=== PATIENT | female | born 1960 | race Caucasian/White ===

== ENCOUNTER 2023-12-05 12:25 | Day surgery (SDC) | payer MEDICARE, SELFPAY ==
--- NOTE | 2023-12-05 | PATH_ITS ---
[facility] Accession Number: [id number] No. of containers..01 Tissue . 01 Material submitted: . body - BARRETTS . 01 Diagnosis: ESOPHAGUS, BIOPSY: Proximal gastric-type mucosa with mild chronic inflammation. Negative for specialized intestinal metaplasia on alcian blue stain. Negative for dysplasia or malignancy. MRV 12/12/2023 1630 Local . 01 Electronically signed: . Aston Sánchez MD, PhD, Pathologist NPI- [id number] . 01 Gross description: . NO SITE DESIGNATED /(BARRETTS X 2): Received in formalin are 2 fragment(s) of roberts, soft tissue measuring 0.2 x 0.2 x 0.2 cm to 0.5 x 0.5 x 0.2 cm submitted entirely in 1 cassette(s) /AD 12/07/2023 0049 Local . 01 Microscopic: . An AB/PAS stain is performed to evaluate for specialized intestinal metaplasia, and is negative for goblet cells. A control stain shows appropriate reactivity. . . 01 Pathologist provided ICD-10: K20.80 . 01 CPT . 726266, 534342 Specimen Comment: A courtesy copy of this report has been sent to [phone] Performed at: [address] [facility] [address], [place], [place] [id number] MD Jayce Molina MD Phone: [phone]
[2023-12-05 13:01] VITALS: BP 149/87; PULSE 97; RESP 18; TEMP 36.3; O2SAT 98
[2023-12-05] MEDS: LACTATED RINGERS 1,000 ML 42 ML IV (13:20)
--- NOTE | 2023-12-05 13:28 | PM.HP.1 ---
History of Present Illness History of Present Illness Date Patient Seen: 12/05/23 Chief complaint: EGD w/poss bx Narrative: EGD for history of Merida's esophagus at a 3 year interval [facility] Medical History Ankle pain (2014) Anxiety (2004) Chicken pox (~1963) Chickenpox Colon polyps (2018) DM type 2 (diabetes mellitus, type 2) Foot pain (2016) GERD (gastroesophageal reflux disease) (2013) History of nephrolithiasis Hypertension (~1997) Kidney stones (~1999) Lower urinary tract symptoms (LUTS) Nephrolithiasis Osteoarthritis (2014) Schatzki's ring (2013) Shingles Surgical History Anesthesia History of ankle surgery (05/2017) Hx of appendectomy (1978) Hx of breast biopsy (1994) Hx of endoscopy (10/2017) Hx of lithotripsy Family History Father Heart disease Hypertension Hyperlipidemia Mental health problem Stroke Mother Hypertension Hyperlipidemia Sister Mental health problem Social History marital status: number of children: 2 household members: spouse lives independently: Yes caregiver/support person: No housing: house Smoking Status: Former smoker Tobacco: How many years used: 10 second hand exposure: No alcohol intake: current substance use type: does not use Meds Home Medications and Allergies Home Medications Medication Instructions Recorded Confirmed Type atorvastatin 20 mg tablet 20 mg PO DAILY #90 tabs 03/19/18 12/05/23 Rx lisinopril 10 mg tablet 10 mg PO DAILY 03/19/18 12/05/23 History omeprazole 20 mg capsule,delayed 20 mg PO DAILY #90 caps 03/19/18 12/05/23 Rx release metformin 500 mg tablet 500 mg PO BID 10/02/18 12/05/23 History metoprolol tartrate 50 mg tablet 50 mg PO BID #180 tabs 02/11/19 12/05/23 Rx semaglutide 7 mg tablet (Rybelsus) 7 mg PO DAILY 11/01/22 12/05/23 History clobetasol 0.05 % topical ointment 1 applic topical BID #30 grams 12/08/22 12/05/23 Rx potassium citrate 10 mEq (1,080 10 meq PO TID #180 tabs 12/18/22 12/05/23 Rx mg) tablet,extended release sertraline 25 mg tablet (Zoloft) 100 mg PO DAILY 03/01/23 12/05/23 History Allergies Allergy/AdvReac Type Severity Reaction Status Date / Time No Known Drug Allergies Allergy Verified 10/29/23 09:37 Exam Vital Signs (past 8 hours): - 12/05/23 13:01 Temperature 97.4 F L Pulse Rate 97 H Respiratory Rate 18 Blood Pressure 149/87 H Pulse Oximetry 98 Oxygen Delivery Method Room Air Oxygen Delivery Method Room Air Narrative Exam Narrative: Oropharynx free of lesions Chest clear to auscultation percussion Cardiac exam reveals no S3 or murmur Assessment & Plan Assessment & Plan narrative: History of Merida's esophagus need for follow-up EGD with biopsy. Risks, benefits, alternatives have been explained.
--- NOTE | 2023-12-05 13:29 | PM.OP.EGD ---
Operative Date/Time/Diagnoses Date of procedure: 12/05/23 Pre-op diagnosis: See indication and findings Procedure & Clinicians Study performed: EGD Indications: Merida's esophagus Surgeon: Floresita Pozo Procedure Notes Procedure in detail: After informed consent was obtained the patient was placed in left lateral decubitus position. The video upper scope was placed into the oropharynx and with the patient's help swallowed into the esophagus. The esophagus stomach duodenum were carefully examined. On withdrawal, retroflexed view the of the GE junction was performed. The scope was removed. The patient tolerated procedure well. Blood loss none Complications none Sedation mac Findings 1. Extremely regular squamocolumnar junction in the distal esophagus corresponding to a wide open Schatzki's ring. If there was any irregularity of was 1-2 mm maximum. Two areas were biopsied but I suspect will be normal. 2. 3 cm hiatal hernia 3. Normal distal stomach 4. Normal duodenal bulb and sweep For probably be worthwhile to get records from [facility] to see the extent of Merida's that was present. This does not look like Merida's whatsoever and I would not biopsied if it was her 1st endoscopy. More information to follow
[2023-12-05 13:47] VITALS: BP 88/50; PULSE 92; RESP 14; TEMP 36.2; O2SAT 97
[2023-12-05 13:53] VITALS: BP 129/72; PULSE 101; RESP 12; O2SAT 94
[2023-12-05 13:57] VITALS: BP 120/68; PULSE 98; RESP 12; O2SAT 94
[2023-12-05 14:04] VITALS: BP 118/87; PULSE 99; RESP 14; O2SAT 94
== END 2023-12-05 14:15 | disposition home or self-care (01) ==
PROVIDERS: Family Provider Family Medicine; PCP Family Medicine; Referring Provider Internal Medicine Gastroenterology; Visit Provider Internal Medicine Gastroenterology
PROC: 0DJ08ZZ Inspection of Upper Intestinal Tract, Via Natural or Artificial Opening Endoscopic (ICD-10-PCS; CPT 43239; principal; 2023-12-05 13:30)
DX: K22.2 Esophageal obstruction (principal); K44.9 Diaphragmatic hernia without obstruction or gangrene; K20.90 Esophagitis, unspecified without bleeding
CPT/HCPCS: 43239; J2704

== ENCOUNTER 2024-02-07 13:00 | Outpatient (RCR) | payer MEDICARE, SELFPAY ==
--- NOTE | 2023-12-20 15:43 | PT.OIE ---
Current Diagnoses Pain in right hip (12/20/23) Pain in left hip (12/20/23) Other lack of coordination (12/20/23) Weakness (12/20/23) Past Medical History (Last Reviewed 03/01/23 @ 11:26 by Birdie Ibrahim MD) Ankle pain (2014) Anxiety (2005) Chicken pox (~1963) Chickenpox Colon polyps (2018) DM type 2 (diabetes mellitus, type 2) Foot pain (2016) GERD (gastroesophageal reflux disease) (2013) History of nephrolithiasis Hypertension (~1997) Kidney stones (~1999) Lower urinary tract symptoms (LUTS) Nephrolithiasis Osteoarthritis (2014) Schatzki's ring (2013) Shingles Past Surgical History (Last Reviewed 03/01/23 @ 11:26 by Birdie Ibrahim MD) Anesthesia History of ankle surgery (05/2017) Hx of appendectomy (1978) Hx of breast biopsy (1994) Hx of endoscopy (10/2017) Hx of lithotripsy Visit Care Team Role Provider Type Casi Wilder MD Attending Provider Physician Family Provider Primary Care Provider Referring Provider Specialty: Family Practice Address: [address] [place] [address] Email: [email or web address] Physical Therapy Initial Evaluation PT-OP-A Visit Information Start: 12/20/23 13:02 Freq: Status: Active Protocol: Document 12/20/23 13:02 NM (Rec: 12/20/23 13:48 NM [id number]) Out-Patient Physical Therapy Visit Information Visit Information Visit Type Initial Evaluation Visit Start Time 13:03 Visit Stop Time 13:45 Visit Number 1 Evaluation Information Evaluation Date 12/20/23 PT-OP-B Current Condition Start: 12/20/23 13:02 Freq: Status: Active Protocol: Document 12/20/23 13:02 NM (Rec: 12/20/23 13:48 NM [id number]) Current Condition History of Current Condition Onset Date several years Current Complaints pain, tightness History of Current Condition Pt presents with achy hips bilaterally. Pain has woken pt during the night, on the side that she sleeps on. Pt reports difficulty with walking. Hips feel super tight . She thinks that her hip problems began initially when she walking funny when she had ankle achilles tendonitis, has had procedures in 2016- 2017. Pt denies back pain. Denies numbnes and tingling. Recently had x-rays. Hips do not hurt at the same time, but equally bad. States that pain comes and go's, not happening as much. 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) Functional Limitations- Other sleepin-3 hrs, rolls over it's fine; 2x/wk (no pattern per pt) PT-OP-C Subjective Start: 12/20/23 13:02 Freq: Status: Active Protocol: Document 12/20/23 13:02 NM (Rec: 12/20/23 13:48 NM [id number]) OP-PT Subjective Patient Comments Patient Comments see hx above for pt report Patient Questionnaires Lower Extremity Functional Scale LEFS Score 52/80 OP-PT Pain Assessment Location R hip Intensity 4 Scale Used Numeric (0 - 10) Description Aching Description- Other deep Frequency Frequent Pain Aggravating Factors Position,Standing,Walking, Stair Climbing Pain Alleviating Factors Heat,Standing,Rest Other Pain Alleviating Factors changing position L hip Intensity 4 Scale Used Numeric (0 - 10) Description Aching Description- Other deep Frequency Frequent Pain Aggravating Factors Position,Standing,Walking, Stair Climbing Other Pain Aggravating Factors sidelying Pain Alleviating Factors Heat,Standing,Rest Other Pain Alleviating Factors changing position PT-OP-E Functional Tests Start: 12/20/23 13:02 Freq: Status: Active Protocol: Document 12/20/23 13:02 NM (Rec: 12/20/23 15:44 NM [id number]) Functional Tests Other Forward Trunk Flexion Test Name of Test measured finger to floor Score 6 PT-OP-F Manual Assessment Start: 12/20/23 13:02 Freq: Status: Active Protocol: Document 12/20/23 13:02 NM (Rec: 12/20/23 15:44 NM [id number]) Manual Assessments Soft Tissue Assessment Soft Tissue Mobility Assessment Increased glute tightness bilaterally. Tenderness along gluteal tendons, greater trochanter Joint Mobility Assessment Joint Mobility Assessment Hip flexion limited bilaterally, partially due to girth. Hip rotation (IR) reproduces pain only AROM. No groin pain or pain with joint scouring. Pain also with active ER during sidelying clam PT-OP-G Mobility & Gait Start: 12/20/23 13:02 Freq: Status: Active Protocol: Document 12/20/23 13:02 NM (Rec: 12/20/23 13:48 NM [id number]) OP Gait Assessment Gait Gait Assistance Required: Independent Distance (Feet) 150 Assistive Devices Assistive Device None Gait Deviations General Gait Pattern Antalgic,Flexed Trunk Factors Limiting Gait Function Factors Limiting Gait Function Decreased Strength,Limited Range of Motion,Pain Comments Gait Comments Stiffness PT-OP-J Posture/Palpation/Skin Start: 12/20/23 13:02 Freq: Status: Active Protocol: Document 12/20/23 13:02 NM (Rec: 12/20/23 13:48 NM [id number]) Posture Evaluation Position Standing Head/C-Spine Posture Forward Head Thorax Posture (L) Prominent L-Spine Posture Increased Lordosis Pelvis Posture Anteriorly Tilted Weight Distribution Balanced Hip Posture (L) Externally Rotated,(R) Externally Rotated Knee Posture (L) Genu Valgus,(R) Genu Valgus Comments Posture Comments L thorax more prominent posteriorly than R thorax. No palpable curve in spine Palpation Assessment Location R hip Palpation Details Tenderness behind greater trochanter, glute muscle belly and tendon. Medium palpable bursa or knot in gluteus medius muscle belly No tenderness in groin or anterior hip, IT band L hip Palpation Details Tenderness behind greater trochanter, glute muscle belly and tendon. Small palpable bursa or knot in gluteus medius muscle belly No tenderness in groin or anterior hip, IT band PT-OP-K Range of Motion Start: 12/20/23 13:02 Freq: Status: Active Protocol: Document 12/20/23 13:02 NM (Rec: 12/20/23 13:48 NM [id number]) Lumbar Spine Range of Motion Lumbar Spine Active Percentage Flexion 90 Extension 100 Rotation Left 7 Rotation Right 7 Lateral Flexion Left 100 Lateral Flexion Right 100 Comments no pain Hip Goniometric Range of Motion Hip Right Flexion w/Knee Flexed 94 Abduction 25 Internal Rotation 28 External Rotation 30 Comments tight hip flex Left Flexion w/Knee Flexed 105 Abduction 25 Internal Rotation 40 External Rotation 28 Comments tight w/ ER, hip pointer IR at glute Knee Goniometric Range of Motion Knee Right Comments Hamstring length: 140 deg Left Comments Hamstring length: 155 deg PT-OP-L Special Tests Start: 12/20/23 13:02 Freq: Status: Active Protocol: Document 12/20/23 13:02 NM (Rec: 12/20/23 13:48 NM [id number]) Special Tests Hip Special Tests John Paul's test Test Results - Sherri's Test Test Results + Log Roll Test Test Results - Straight Leg Raise Test Results - Comments no groin pain but discomfort reported at lateral hip Posterior Labral Test Test Results - Anterior Labral Test Test Results - scour Test Results - PT-OP-M Strength Start: 12/20/23 13:02 Freq: Status: Active Protocol: Document 12/20/23 13:02 NM (Rec: 12/20/23 13:48 NM [id number]) Trunk Strength Trunk Manual Muscle Testing Flexion 4 Good Extension 4 Good Rotation Left 4 Good Rotation Right 4 Good Lateral Flexion Left 4 Good Lateral Flexion Right 4 Good Comments No pain with resisted motion Hip Strength Hip Manual Muscle Testing Right Flexion (L2) 4 Good Extension (S1) 4- Good- Abduction 4- Good- Adduction 4 Good External Rotation 4 Good Internal Rotation 4 Good Comments abd and IR reproduce pain Left Flexion (L2) 4 Good Extension (S1) 4- Good- Abduction 4- Good- External Rotation 4 Good Internal Rotation 4 Good Comments IR reproduced pain, none with abduction but weaker PT-OP-Q Treatments Start: 12/20/23 13:02 Freq: Status: Active Protocol: Document 12/20/23 13:02 NM (Rec: 12/20/23 13:48 NM [id number]) Self-Care/Home Management Treatment Education Patient Education Joint Protection,Pain Management Other Education 8 minutes- Educated on tendinopathy and muscle strain timeline, rehabilitation progression and expectations. Educated and issued handout on sleeping position using pillows for sidelying, avoid ER sitting posture due tissue elongation PT-OP-T Assessment and Plan Start: 12/20/23 13:02 Freq: Status: Active Protocol: Document 12/20/23 13:02 NM (Rec: 12/20/23 13:48 NM [id number]) Physical Therapy Assessment Rehab Potential Rehabilitation Potential Good Evaluation Complexity Number of Personal Factors/Comorbidities 3 or More Number of Body Systems Impaired 1-2 Clinical Presentation at Evaluation Stable Impairments Impairments Activity Tolerance,Balance, Functional Activities, Functional Mobility,Gait, Integument,Pain,Posture,ROM, Sensation,Soft Tissue Mobility ,Strength,Transfers Goals Five Impairment HEP Short Term Goal (STG) Pt will report compliance with HEP at least 3x/wk in order to maximize progression with PT and demonstrate improved activity tolerance STG Duration 6 weeks 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) Pt will report compliance with HEP at least 3x/wk in order to transition into maintenance program and promote healthier activity habits upon discharge from PT LTG Duration 12 weeks Four Impairment sleep Short Term Goal (STG) Pt will report that she is waking less than 2x/wk due to hip pain in order to show improved symptom management and QOL STG Duration 6 weeks Prison Goal (LTG) Pt will report that she does not wake at night due to hip pain in order to show improved symptom management and QOL LTG Duration 12 weeks Three Impairment function, gait Short Term Goal (STG) Pt will report that she is able to ambulate at least 30 minutes without increase in baseline pain during errands or when walking her dog in order to demonstrate improved activity tolerance and QOL STG Duration 6 weeks Prison Goal (LTG) Pt will report no limitation due to hip pain in ambulation distance or surface in order to demonstrate improved activity tolerance when walking her dog or during errands LTG Duration 12 weeks Two Impairment strength Impairment difficulty with transition from sit > stand Short Term Goal (STG) Pt will be able to transfer from sitting to standing at least 10 times without UE assistance and no increase in baseline pain in order to demonstrate increased BLE strength, improved symptom management and ability to perform transfers STG Duration 6 weeks Prison Goal (LTG) Pt will complete 30 sec sit to stand at age-appropriate norms (15) without UE assistance or increase in baseline pain in order to demonstrate increased BLE strength, improved symptom management and ability to perform transfers LTG Duration 12 weeks One Impairment strength Short Term Goal (STG) Pt will improve B hip extension and abduction strength to at least 4/5 MMT in order to demonstrate increased hip strength for balance and gait STG Duration 6 weeks Prison Goal (LTG) Pt will improve B hip extension and abduction strength to at least 4+/5 MMT in order to demonstrate increased hip strength for balance and gait LTG Duration 12 weeks Assessment Summary Assessment Pt is a 63 y.o. female presenting with bilateral hip pain beginning several months ago. Pain is equal, but she recently had an exacerbation of her R hip pain about 8 weeks ago. Pain is worse with ambulation, standing, stair climbing, resisted hip abduction and IR, stairs. Currently, pt's impairments are ROM, strength, gait, balance, pain, stairs, sleep, and ability to participate in ADLs. Pt has tenderness to palpation over her gluteus medius muscle belly and tendons, in addition to her greater trochanter. Pt has weakness in B hips, particularly into internal rotation, extension, and abduction. She has limitations also in hip ROM. Pt's symptoms are consistent with gluteal tendinopathy with possible muscle strain. Pt's symptoms do not affect her job , but do affect her ability to perform ADLs. PT educated pt on exam findings and plan of care. PT also educated pt on sleeping and sitting position to limit increased strain to glutes, improve pain symptoms. Pt would benefit from skilled PT for progressive tendon loading, flexibility training, and strengthening in order to improve symptom management and ADL tolerance. Physical Therapy Plan Frequency and Duration Frequency of Treatment 2x/Week Duration of treatment (weeks) 12 Plan of Care Start Date 12/20/23 Plan of Care End Date 03/14/24 Therapeutic Interventions Therapeutic Interventions Balance Training,Gait Training ,Home Exercise Program,Joint Mobilizations,Manual Therapy, Neuromuscular Re-education, Orthotic/Prosthetic Management ,Patient/Caregiver Education, Self-Care/Home Management, Sensory Integration,Soft Tissue Mobilization,Taping, Therapeutic Activities, Therapeutic Exercises Modalities Cold Pack/Ice Massage,Electric Stimulation,Hot Packs, Traction- Mechanical, Ultrasound Next Visit Focus/Plan Next Note Type Treatment Note Next Visit Plan Progressive tendon loading of glute medius bilaterally. 30 sec STS test Hip abduction/IR/ER isometrics in sitting and supine Initiate HS stretch if tolerated, jb stretch. Avoid ER/IR stretch for now, minimize ADD Manual - STM to glutes, HS
--- NOTE | 2023-12-25 15:57 | PT.OTN ---
Current Diagnoses Pain in right hip (12/25/23) Pain in left hip (12/25/23) Other lack of coordination (12/25/23) Weakness (12/25/23) Physical Therapy Treatment Note PT-OP-A Visit Information Start: 12/20/23 13:02 Freq: Status: Active Protocol: Document 12/25/23 13:52 NM (Rec: 12/25/23 14:25 NM [id number]) Out-Patient Physical Therapy Visit Information Visit Information Visit Type Treatment Note Visit Start Time 13:52 Visit Stop Time 14:30 Visit Number 2 Evaluation Information Evaluation Date 12/20/23 PT-OP-B Current Condition Start: 12/20/23 13:02 Freq: Status: Active Protocol: Document 12/20/23 13:02 NM (Rec: 12/20/23 13:48 NM [id number]) Current Condition History of Current Condition Onset Date several years Current Complaints pain, tightness History of Current Condition Pt presents with achy hips bilaterally. Pain has woken pt during the night, on the side that she sleeps on. Pt reports difficulty with walking. Hips feel super tight . She thinks that her hip problems began initially when she walking funny when she had ankle achilles tendonitis, has had procedures in 2016- 2016. Pt denies back pain. Denies numbnes and tingling. Recently had x-rays. Hips do not hurt at the same time, but equally bad. States that pain comes and go's, not happening as much. 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 Currently . Pt sleeps on her side, tries putting a pillow under her hip, which didn't make a difference (tried for 3 nights ). PT-OP-E Functional Tests Start: 12/20/23 13:02 Freq: Status: Active Protocol: Document 12/20/23 13:02 NM (Rec: 12/20/23 15:44 NM [id number]) Functional Tests Other Forward Trunk Flexion Test Name of Test measured finger to floor Score 6 PT-OP-F Manual Assessment Start: 12/20/23 13:02 Freq: Status: Active Protocol: Document 12/20/23 13:02 NM (Rec: 12/20/23 15:44 NM [id number]) Manual Assessments Soft Tissue Assessment Soft Tissue Mobility Assessment Increased glute tightness bilaterally. Tenderness along gluteal tendons, greater trochanter Joint Mobility Assessment Joint Mobility Assessment Hip flexion limited bilaterally, partially due to girth. Hip rotation (IR) reproduces pain only AROM. No groin pain or pain with joint scouring. Pain also with active ER during sidelying clam PT-OP-G Mobility & Gait Start: 12/20/23 13:02 Freq: Status: Active Protocol: Document 12/20/23 13:02 NM (Rec: 12/20/23 13:48 NM [id number]) OP Gait Assessment Gait Gait Assistance Required: Independent Distance (Feet) 150 Assistive Devices Assistive Device None Gait Deviations General Gait Pattern Antalgic,Flexed Trunk Factors Limiting Gait Function Factors Limiting Gait Function Decreased Strength,Limited Range of Motion,Pain Comments Gait Comments Stiffness PT-OP-J Posture/Palpation/Skin Start: 12/20/23 13:02 Freq: Status: Active Protocol: Document 12/20/23 13:02 NM (Rec: 12/20/23 13:48 NM [id number]) Posture Evaluation Position Standing Head/C-Spine Posture Forward Head Thorax Posture (L) Prominent L-Spine Posture Increased Lordosis Pelvis Posture Anteriorly Tilted Weight Distribution Balanced Hip Posture (L) Externally Rotated,(R) Externally Rotated Knee Posture (L) Genu Valgus,(R) Genu Valgus Comments Posture Comments L thorax more prominent posteriorly than R thorax. No palpable curve in spine Palpation Assessment Location R hip Palpation Details Tenderness behind greater trochanter, glute muscle belly and tendon. Medium palpable bursa or knot in gluteus medius muscle belly No tenderness in groin or anterior hip, IT band L hip Palpation Details Tenderness behind greater trochanter, glute muscle belly and tendon. Small palpable bursa or knot in gluteus medius muscle belly No tenderness in groin or anterior hip, IT band PT-OP-K Range of Motion Start: 12/20/23 13:02 Freq: Status: Active Protocol: Document 12/20/23 13:02 NM (Rec: 12/20/23 13:48 NM [id number]) Lumbar Spine Range of Motion Lumbar Spine Active Percentage Flexion 90 Extension 100 Rotation Left 7 Rotation Right 7 Lateral Flexion Left 100 Lateral Flexion Right 100 Comments no pain Hip Goniometric Range of Motion Hip Right Flexion w/Knee Flexed 94 Abduction 25 Internal Rotation 28 External Rotation 30 Comments tight hip flex Left Flexion w/Knee Flexed 105 Abduction 25 Internal Rotation 40 External Rotation 28 Comments tight w/ ER, hip pointer IR at glute Knee Goniometric Range of Motion Knee Right Comments Hamstring length: 140 deg Left Comments Hamstring length: 155 deg PT-OP-L Special Tests Start: 12/20/23 13:02 Freq: Status: Active Protocol: Document 12/20/23 13:02 NM (Rec: 12/20/23 13:48 NM [id number]) Special Tests Hip Special Tests John [employer]'s test Test Results - Sherri's Test Test Results + Log Roll Test Test Results - Straight Leg Raise Test Results - Comments no groin pain but discomfort reported at lateral hip Posterior Labral Test Test Results - Anterior Labral Test Test Results - scour Test Results - PT-OP-M Strength Start: 12/20/23 13:02 Freq: Status: Active Protocol: Document 12/20/23 13:02 NM (Rec: 12/20/23 13:48 NM [id number]) Trunk Strength Trunk Manual Muscle Testing Flexion 4 Good Extension 4 Good Rotation Left 4 Good Rotation Right 4 Good Lateral Flexion Left 4 Good Lateral Flexion Right 4 Good Comments No pain with resisted motion Hip Strength Hip Manual Muscle Testing Right Flexion (L2) 4 Good Extension (S1) 4- Good- Abduction 4- Good- Adduction 4 Good External Rotation 4 Good Internal Rotation 4 Good Comments abd and IR reproduce pain Left Flexion (L2) 4 Good Extension (S1) 4- Good- Abduction 4- Good- External Rotation 4 Good Internal Rotation 4 Good Comments IR reproduced pain, none with abduction but weaker PT-OP-Q Treatments Start: 12/20/23 13:02 Freq: Status: Active Protocol: Document 12/25/23 13:52 NM (Rec: 12/25/23 14:25 NM [id number]) Therapeutic Exercises Supine Exercises hip abduction isometric Side bilateral Resistance level 2 band around thighs Equipment Used pillows under knees for slight flexion Reps/Minutes 3-5x30 with 1' break in between ea set Comments pain free, good muscle activation; 50% effort, neutral foot rotation bridge Supine Exercise Name functional movement following HEP Side bilateral Resistance level 2 band around thighs above knees Equipment Used hooklying, feet shoulder width apart Reps/Minutes 2x10 Comments pain free @ glutes, reports good activation; cued reset contraction ea lift dynamic HS stretch/nerve glide Supine Exercise Name knee flex/ext on 90/90 Side bilateral Resistance AROM Equipment Used with towel to assist with hip flex Reps/Minutes 60 ea Comments pain free on L, slight pointer on R with inc knee flexion; reports pulling Sitting Exercises sit to stand Sitting Exercise Name test: 30 sec STS (for evaluation) Reps/Minutes 11 Comments reports R glute med pain Therapeutic Activity Therapeutic Activity sleeping position Reps/Minutes 8 minutes Comments Positioning with pillows using 3/4 prone or 3/4 supine turn, pillow under hips to limit pain with sleeping. Pillows between legs. Educated to not have legs cross. Trouble shooting on positioning pt's legs for pain reduction with sleeping Manual Therapy Treatment Soft Tissue Mobilization B hips/glutes Body Location glutes, hamstrings Mobilization Type Rolling,Strumming Intensity/Depth Superficial Comments R more tender than L. Avoided just insertion of glute med. Gentle rolling with fingers of glutes and rolling pin to hamstrings. Reports feels good but does not resolve symptoms. Performed prior to exercise Mobilization with movement on R hip with hip ER/clam, which is pain free Self-Care/Home Management Treatment Education Patient Education Home Exercise Program,Pain Management Other Education Education to avoid crossing legs in sitting or sleeping to decrease strain on glute tendons, sleeping and sitting positions HEP: supine hip abduction isometric, bridge with band PT-OP-T Assessment and Plan Start: 12/20/23 13:02 Freq: Status: Active Protocol: Document 12/25/23 13:52 NM (Rec: 12/25/23 14:25 NM [id number]) Physical Therapy Assessment Goals Five Impairment HEP Short Term Goal (STG) Pt will report compliance with HEP at least 3x/wk in order to maximize progression with PT and demonstrate improved activity tolerance STG Duration 6 weeks Penitentiary Goal (LTG) Pt will report compliance with HEP at least 3x/wk in order to transition into maintenance program and promote healthier activity habits upon discharge from PT LTG Duration 12 weeks Four Impairment sleep Short Term Goal (STG) Pt will report that she is waking less than 2x/wk due to hip pain in order to show improved symptom management and QOL STG Duration 6 weeks Penitentiary Goal (LTG) Pt will report that she does not wake at night due to hip pain in order to show improved symptom management and QOL LTG Duration 12 weeks Three Impairment function, gait Short Term Goal (STG) Pt will report that she is able to ambulate at least 30 minutes without increase in baseline pain during errands or when walking her dog in order to demonstrate improved activity tolerance and QOL STG Duration 6 weeks Penitentiary Goal (LTG) Pt will report no limitation due to hip pain in ambulation distance or surface in order to demonstrate improved activity tolerance when walking her dog or during errands LTG Duration 12 weeks Two Impairment strength Impairment difficulty with transition from sit > stand Short Term Goal (STG) Pt will be able to transfer from sitting to standing at least 10 times without UE assistance and no increase in baseline pain in order to demonstrate increased BLE strength, improved symptom management and ability to perform transfers STG Duration 6 weeks Head Orthopedic Team Physician Goal (LTG) Pt will complete 30 sec sit to stand at age-appropriate norms (15) without UE assistance or increase in baseline pain in order to demonstrate increased BLE strength, improved symptom management and ability to perform transfers LTG Duration 12 weeks One Impairment strength Short Term Goal (STG) Pt will improve B hip extension and abduction strength to at least 4/5 MMT in order to demonstrate increased hip strength for balance and gait STG Duration 6 weeks Penitentiary Goal (LTG) Pt will improve B hip extension and abduction strength to at least 4+/5 MMT in order to demonstrate increased hip strength for balance and gait LTG Duration 12 weeks Assessment Summary Assessment Pt tolerated session well without increase in B glute tendon pain. Initiated hip abduction isometrics in supine for tendon loading. Cued pt for form. Pt able to perform at 50% effort without pain. Educated pt to monitor tendon symptoms to determine tolerance for loading, perform isometrics every other day with progression up to 70% as tolerated. Followed with functional movement of bridge with hip abduction to address glute activation. Educated pt on sleeping position and troubleshooted BLE set up to avoid positions that increase pain or aggravate symptoms. Pt responds well to gentle manual therapy to B glutes and hamstrings. Pt would benefit from skilled PT for progressive tendon loading and functional movement retraining of BLE in order to improve symptom management and activity tolerance. Physical Therapy Plan Frequency and Duration Frequency of Treatment 2x/Week Duration of treatment (weeks) 12 Plan of Care Start Date 12/20/23 Plan of Care End Date 03/14/24 Therapeutic Interventions Therapeutic Interventions Balance Training,Gait Training ,Home Exercise Program,Joint Mobilizations,Manual Therapy, Neuromuscular Re-education, Orthotic/Prosthetic Management ,Patient/Caregiver Education, Self-Care/Home Management, Sensory Integration,Soft Tissue Mobilization,Taping, Therapeutic Activities, Therapeutic Exercises Modalities Cold Pack/Ice Massage,Electric Stimulation,Hot Packs, Traction- Mechanical, Ultrasound Next Visit Focus/Plan Next Note Type Treatment Note Next Visit Plan plan: Progressive tendon loading of glute medius bilaterally Hip abduction/IR/ER isometrics in supine [id number] at 50-70% force, progress to sitting. As progress, trial sidelying isometric hold with pillows under legs Follow with functional movement (e.g single leg bridge, sit to stand) Initiate HS stretch if tolerated, jb stretch. Avoid ER/IR stretch for now, minimize ADD Manual - STM to glutes, HS
--- NOTE | 2024-01-01 17:15 | PT.OTN ---
Current Diagnoses Pain in right hip (01/01/24) Pain in left hip (01/01/24) Other lack of coordination (01/01/24) Weakness (01/01/24) Physical Therapy Treatment Note PT-OP-A Visit Information Start: 12/20/23 13:02 Freq: Status: Active Protocol: Document 01/01/24 13:55 NBM (Rec: 01/01/24 14:40 NBM [id number]) Out-Patient Physical Therapy Visit Information Visit Information Visit Type Treatment Note Visit Start Time 13:52 Visit Stop Time 14:37 Visit Number 3 Number of CREDIT CONTROL ASSISTANT Visits 1 Evaluation Information Evaluation Date 12/20/23 PT-OP-B Current Condition Start: 12/20/23 13:02 Freq: Status: Active Protocol: Document 12/20/23 13:02 NM (Rec: 12/20/23 13:48 NM [id number]) Current Condition History of Current Condition Onset Date several years Current Complaints pain, tightness History of Current Condition Pt presents with achy hips bilaterally. Pain has woken pt during the night, on the side that she sleeps on. Pt reports difficulty with walking. Hips feel super tight . She thinks that her hip problems began initially when she walking funny when she had ankle achilles tendonitis, has had procedures in 2016- 2017. Pt denies back pain. Denies numbnes and tingling. Recently had x-rays. Hips do not hurt at the same time, but equally bad. States that pain comes and go's, not happening as much. 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 She felt like her old pulled muscle in R gluteal medius was aggravated by trying ex's at home the next night and day after, and was sore for the next day and a half. She's modified her ex's to every other day instead. Her hips are doing okay though . She's not walking her dog now to avoid further aggravating it so is walking him. Her dog is 75# and climbed on her during bridges so she stopped with him around. No hip pain at night now but is now waking up from the butt pain. PT-OP-E Functional Tests Start: 12/20/23 13:02 Freq: Status: Active Protocol: Document 12/20/23 13:02 NM (Rec: 12/20/23 15:44 NM [id number]) Functional Tests Other Forward Trunk Flexion Test Name of Test measured finger to floor Score 6 PT-OP-F Manual Assessment Start: 12/20/23 13:02 Freq: Status: Active Protocol: Document 12/20/23 13:02 NM (Rec: 12/20/23 15:44 NM [id number]) Manual Assessments Soft Tissue Assessment Soft Tissue Mobility Assessment Increased glute tightness bilaterally. Tenderness along gluteal tendons, greater trochanter Joint Mobility Assessment Joint Mobility Assessment Hip flexion limited bilaterally, partially due to girth. Hip rotation (IR) reproduces pain only AROM. No groin pain or pain with joint scouring. Pain also with active ER during sidelying clam PT-OP-G Mobility & Gait Start: 12/20/23 13:02 Freq: Status: Active Protocol: Document 12/20/23 13:02 NM (Rec: 12/20/23 13:48 NM [id number]) OP Gait Assessment Gait Gait Assistance Required: Independent Distance (Feet) 150 Assistive Devices Assistive Device None Gait Deviations General Gait Pattern Antalgic,Flexed Trunk Factors Limiting Gait Function Factors Limiting Gait Function Decreased Strength,Limited Range of Motion,Pain Comments Gait Comments Stiffness PT-OP-J Posture/Palpation/Skin Start: 12/20/23 13:02 Freq: Status: Active Protocol: Document 12/20/23 13:02 NM (Rec: 12/20/23 13:48 NM [id number]) Posture Evaluation Position Standing Head/C-Spine Posture Forward Head Thorax Posture (L) Prominent L-Spine Posture Increased Lordosis Pelvis Posture Anteriorly Tilted Weight Distribution Balanced Hip Posture (L) Externally Rotated,(R) Externally Rotated Knee Posture (L) Genu Valgus,(R) Genu Valgus Comments Posture Comments L thorax more prominent posteriorly than R thorax. No palpable curve in spine Palpation Assessment Location R hip Palpation Details Tenderness behind greater trochanter, glute muscle belly and tendon. Medium palpable bursa or knot in gluteus medius muscle belly No tenderness in groin or anterior hip, IT band L hip Palpation Details Tenderness behind greater trochanter, glute muscle belly and tendon. Small palpable bursa or knot in gluteus medius muscle belly No tenderness in groin or anterior hip, IT band PT-OP-K Range of Motion Start: 12/20/23 13:02 Freq: Status: Active Protocol: Document 12/20/23 13:02 NM (Rec: 12/20/23 13:48 NM [id number]) Lumbar Spine Range of Motion Lumbar Spine Active Percentage Flexion 90 Extension 100 Rotation Left 7 Rotation Right 7 Lateral Flexion Left 100 Lateral Flexion Right 100 Comments no pain Hip Goniometric Range of Motion Hip Right Flexion w/Knee Flexed 94 Abduction 25 Internal Rotation 28 External Rotation 30 Comments tight hip flex Left Flexion w/Knee Flexed 105 Abduction 25 Internal Rotation 40 External Rotation 28 Comments tight w/ ER, hip pointer IR at glute Knee Goniometric Range of Motion Knee Right Comments Hamstring length: 140 deg Left Comments Hamstring length: 155 deg PT-OP-L Special Tests Start: 12/20/23 13:02 Freq: Status: Active Protocol: Document 12/20/23 13:02 NM (Rec: 12/20/23 13:48 NM [id number]) Special Tests Hip Special Tests John [employer]'s test Test Results - Sherri's Test Test Results + Log Roll Test Test Results - Straight Leg Raise Test Results - Comments no groin pain but discomfort reported at lateral hip Posterior Labral Test Test Results - Anterior Labral Test Test Results - scour Test Results - PT-OP-M Strength Start: 12/20/23 13:02 Freq: Status: Active Protocol: Document 12/20/23 13:02 NM (Rec: 12/20/23 13:48 NM [id number]) Trunk Strength Trunk Manual Muscle Testing Flexion 4 Good Extension 4 Good Rotation Left 4 Good Rotation Right 4 Good Lateral Flexion Left 4 Good Lateral Flexion Right 4 Good Comments No pain with resisted motion Hip Strength Hip Manual Muscle Testing Right Flexion (L2) 4 Good Extension (S1) 4- Good- Abduction 4- Good- Adduction 4 Good External Rotation 4 Good Internal Rotation 4 Good Comments abd and IR reproduce pain Left Flexion (L2) 4 Good Extension (S1) 4- Good- Abduction 4- Good- External Rotation 4 Good Internal Rotation 4 Good Comments IR reproduced pain, none with abduction but weaker PT-OP-Q Treatments Start: 12/20/23 13:02 Freq: Status: Active Protocol: Document 01/01/24 13:55 NBM (Rec: 01/01/24 14:40 NBM [id number]) Therapeutic Exercises Supine Exercises IT Band stretch Side right Equipment Used towel Reps/Minutes x30s Comments small pain-free range. hamstring stretch Side right Equipment Used towel Reps/Minutes x30s hip abduction isometric Side bilateral Resistance level 2 band around thighs Equipment Used pillows under knees for slight flexion Reps/Minutes 5x30 with 1' break in between ea set Comments pain free, good muscle activation; 50% effort, neutral foot rotation bridge Supine Exercise Name functional movement following HEP Side bilateral Resistance level 2 band around thighs above knees Equipment Used hooklying, feet shoulder width apart Reps/Minutes 2x10 Comments pain free @ glutes, cues for R neutral foot dynamic HS stretch/nerve glide Supine Exercise Name knee flex/ext on 90/90 Side bilateral Resistance AROM Equipment Used with towel to assist with hip flex Reps/Minutes 60 ea Comments pain free on L, slight pointer on R with inc knee flexion; reports pulling Sitting Exercises stretching Sitting Exercise Name piriformis stretch: 1. Fig. 4 2. knee to opp devonte Reps/Minutes 2 x30s Comments cues for breath sit to stand Sitting Exercise Name pt offloading weight from RLE to LLE and pelvic rotation w/ sit Equipment Used standard mesh chair Reps/Minutes x5 Comments reports R gluteal pain from old gluteal tendon pull injury Manual Therapy Treatment Soft Tissue Mobilization B hips/glutes Body Location R glutes, hamstring insertions , TFL and ITB Mobilization Type Oscillations,Rolling,Strumming Intensity/Depth Superficial Body Position Sidelying Comments Tenderness noted to piriformis , TFL, mid-ITB, HS insertions, Gluteus medius. PT-OP-R Modalities Start: 12/20/23 13:02 Freq: Status: Active Protocol: Document 01/01/24 13:55 NBM (Rec: 01/01/24 14:40 NBM [id number]) Hot Pack/Cold Pack Treatment cold Location R glute/HS insertions and R hip using strap Patient Position Sidelying Patient Tolerance Good Comments calvo and all needs within reach. 10 minutes PT-OP-T Assessment and Plan Start: 12/20/23 13:02 Freq: Status: Active Protocol: Document 01/01/24 13:55 NBM (Rec: 01/01/24 14:40 [facility] [id number]) Physical Therapy Assessment Goals Five Impairment HEP Short Term Goal (STG) Pt will report compliance with HEP at least 3x/wk in order to maximize progression with PT and demonstrate improved activity tolerance STG Duration 6 weeks Half-Way Goal (LTG) Pt will report compliance with HEP at least 3x/wk in order to transition into maintenance program and promote healthier activity habits upon discharge from PT LTG Duration 12 weeks Four Impairment sleep Short Term Goal (STG) Pt will report that she is waking less than 2x/wk due to hip pain in order to show improved symptom management and QOL STG Duration 6 weeks Half-Way Goal (LTG) Pt will report that she does not wake at night due to hip pain in order to show improved symptom management and QOL LTG Duration 12 weeks Three Impairment function, gait Short Term Goal (STG) Pt will report that she is able to ambulate at least 30 minutes without increase in baseline pain during errands or when walking her dog in order to demonstrate improved activity tolerance and QOL STG Duration 6 weeks Swimming Pool Servicer Goal (LTG) Pt will report no limitation due to hip pain in ambulation distance or surface in order to demonstrate improved activity tolerance when walking her dog or during errands LTG Duration 12 weeks Two Impairment strength Impairment difficulty with transition from sit > stand Short Term Goal (STG) Pt will be able to transfer from sitting to standing at least 10 times without UE assistance and no increase in baseline pain in order to demonstrate increased BLE strength, improved symptom management and ability to perform transfers STG Duration 6 weeks Swimming Pool Servicer Goal (LTG) Pt will complete 30 sec sit to stand at age-appropriate norms (15) without UE assistance or increase in baseline pain in order to demonstrate increased BLE strength, improved symptom management and ability to perform transfers LTG Duration 12 weeks One Impairment strength Short Term Goal (STG) Pt will improve B hip extension and abduction strength to at least 4/5 MMT in order to demonstrate increased hip strength for balance and gait STG Duration 6 weeks Half-Way Goal (LTG) Pt will improve B hip extension and abduction strength to at least 4+/5 MMT in order to demonstrate increased hip strength for balance and gait LTG Duration 12 weeks Assessment Summary Assessment Tasia presents today without hip pain which she was referred for but with possible re-injury of R tendon pain in hip (she describes as gluteal pain but points to R HS insertions). Today pt is offloading weight from RLE to LLE and requires cues for excessive pelvic rotation during eccentric phase of sit to stand. She is able to perform equal weightbearing w/ bridging an dcues for pushing through heels. Palpable tension improves with STM to R HS insertions and R hip. Edu to pt re: use of cryotherapy for pain management; cryotherapy to R glutes/hip end of session for pain management w/ positive feedback response. Physical Therapy Plan Frequency and Duration Frequency of Treatment 2x/Week Duration of treatment (weeks) 12 Plan of Care Start Date 12/20/23 Plan of Care End Date 03/14/24 Therapeutic Interventions Therapeutic Interventions Balance Training,Gait Training ,Home Exercise Program,Joint Mobilizations,Manual Therapy, Neuromuscular Re-education, Orthotic/Prosthetic Management ,Patient/Caregiver Education, Self-Care/Home Management, Sensory Integration,Soft Tissue Mobilization,Taping, Therapeutic Activities, Therapeutic Exercises Modalities Cold Pack/Ice Massage,Electric Stimulation,Hot Packs, Traction- Mechanical, Ultrasound Next Visit Focus/Plan Next Note Type Treatment Note Next Visit Plan plan: Progressive tendon loading of glute medius bilaterally Hip abduction/IR/ER isometrics in supine [id number] at 50-70% force, progress to sitting. As progress, trial sidelying isometric hold with pillows under legs Follow with functional movement (e.g single leg bridge, sit to stand) Initiate HS stretch if tolerated, jb stretch. Avoid ER/IR stretch for now, minimize ADD Manual - STM to glutes, HS
--- NOTE | 2024-01-08 15:32 | PT.OTN ---
Current Diagnoses Pain in right hip (01/08/24) Pain in left hip (01/08/24) Other lack of coordination (01/08/24) Weakness (01/08/24) Physical Therapy Treatment Note PT-OP-A Visit Information Start: 12/20/23 13:02 Freq: Status: Active Protocol: Document 01/08/24 13:03 NM (Rec: 01/08/24 13:47 NM [id number]) Out-Patient Physical Therapy Visit Information Visit Information Visit Type Treatment Note Visit Start Time 13:04 Visit Stop Time 13:44 Visit Number 5 Evaluation Information Evaluation Date 12/20/23 PT-OP-B Current Condition Start: 12/20/23 13:02 Freq: Status: Active Protocol: Document 12/20/23 13:02 NM (Rec: 12/20/23 13:48 NM [id number]) Current Condition History of Current Condition Onset Date several years Current Complaints pain, tightness History of Current Condition Pt presents with achy hips bilaterally. Pain has woken pt during the night, on the side that she sleeps on. Pt reports difficulty with walking. Hips feel super tight . She thinks that her hip problems began initially when she walking funny when she had ankle achilles tendonitis, has had procedures in 2016- 2016. Pt denies back pain. Denies numbnes and tingling. Recently had x-rays. Hips do not hurt at the same time, but equally bad. States that pain comes and go's, not happening as much. 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 Reports doing her exercises still, which are now every other night. PT-OP-E Functional Tests Start: 12/20/23 13:02 Freq: Status: Active Protocol: Document 12/20/23 13:02 NM (Rec: 12/20/23 15:44 NM [id number]) Functional Tests Other Forward Trunk Flexion Test Name of Test measured finger to floor Score 6 PT-OP-F Manual Assessment Start: 12/20/23 13:02 Freq: Status: Active Protocol: Document 12/20/23 13:02 NM (Rec: 12/20/23 15:44 NM [id number]) Manual Assessments Soft Tissue Assessment Soft Tissue Mobility Assessment Increased glute tightness bilaterally. Tenderness along gluteal tendons, greater trochanter Joint Mobility Assessment Joint Mobility Assessment Hip flexion limited bilaterally, partially due to girth. Hip rotation (IR) reproduces pain only AROM. No groin pain or pain with joint scouring. Pain also with active ER during sidelying clam PT-OP-G Mobility & Gait Start: 12/20/23 13:02 Freq: Status: Active Protocol: Document 12/20/23 13:02 NM (Rec: 12/20/23 13:48 NM [id number]) OP Gait Assessment Gait Gait Assistance Required: Independent Distance (Feet) 150 Assistive Devices Assistive Device None Gait Deviations General Gait Pattern Antalgic,Flexed Trunk Factors Limiting Gait Function Factors Limiting Gait Function Decreased Strength,Limited Range of Motion,Pain Comments Gait Comments Stiffness PT-OP-J Posture/Palpation/Skin Start: 12/20/23 13:02 Freq: Status: Active Protocol: Document 12/20/23 13:02 NM (Rec: 12/20/23 13:48 NM [id number]) Posture Evaluation Position Standing Head/C-Spine Posture Forward Head Thorax Posture (L) Prominent L-Spine Posture Increased Lordosis Pelvis Posture Anteriorly Tilted Weight Distribution Balanced Hip Posture (L) Externally Rotated,(R) Externally Rotated Knee Posture (L) Genu Valgus,(R) Genu Valgus Comments Posture Comments L thorax more prominent posteriorly than R thorax. No palpable curve in spine Palpation Assessment Location R hip Palpation Details Tenderness behind greater trochanter, glute muscle belly and tendon. Medium palpable bursa or knot in gluteus medius muscle belly No tenderness in groin or anterior hip, IT band L hip Palpation Details Tenderness behind greater trochanter, glute muscle belly and tendon. Small palpable bursa or knot in gluteus medius muscle belly No tenderness in groin or anterior hip, IT band PT-OP-K Range of Motion Start: 12/20/23 13:02 Freq: Status: Active Protocol: Document 12/20/23 13:02 NM (Rec: 12/20/23 13:48 NM [id number]) Lumbar Spine Range of Motion Lumbar Spine Active Percentage Flexion 90 Extension 100 Rotation Left 7 Rotation Right 7 Lateral Flexion Left 100 Lateral Flexion Right 100 Comments no pain Hip Goniometric Range of Motion Hip Right Flexion w/Knee Flexed 94 Abduction 25 Internal Rotation 28 External Rotation 30 Comments tight hip flex Left Flexion w/Knee Flexed 105 Abduction 25 Internal Rotation 40 External Rotation 28 Comments tight w/ ER, hip pointer IR at glute Knee Goniometric Range of Motion Knee Right Comments Hamstring length: 140 deg Left Comments Hamstring length: 155 deg PT-OP-L Special Tests Start: 12/20/23 13:02 Freq: Status: Active Protocol: Document 12/20/23 13:02 NM (Rec: 12/20/23 13:48 NM [id number]) Special Tests Hip Special Tests John [employer]'s test Test Results - Sherri's Test Test Results + Log Roll Test Test Results - Straight Leg Raise Test Results - Comments no groin pain but discomfort reported at lateral hip Posterior Labral Test Test Results - Anterior Labral Test Test Results - scour Test Results - PT-OP-M Strength Start: 12/20/23 13:02 Freq: Status: Active Protocol: Document 12/20/23 13:02 NM (Rec: 12/20/23 13:48 NM [id number]) Trunk Strength Trunk Manual Muscle Testing Flexion 4 Good Extension 4 Good Rotation Left 4 Good Rotation Right 4 Good Lateral Flexion Left 4 Good Lateral Flexion Right 4 Good Comments No pain with resisted motion Hip Strength Hip Manual Muscle Testing Right Flexion (L2) 4 Good Extension (S1) 4- Good- Abduction 4- Good- Adduction 4 Good External Rotation 4 Good Internal Rotation 4 Good Comments abd and IR reproduce pain Left Flexion (L2) 4 Good Extension (S1) 4- Good- Abduction 4- Good- External Rotation 4 Good Internal Rotation 4 Good Comments IR reproduced pain, none with abduction but weaker PT-OP-Q Treatments Start: 12/20/23 13:02 Freq: Status: Active Protocol: Document 01/08/24 13:03 NM (Rec: 01/08/24 13:47 NM [id number]) Therapeutic Exercises Supine Exercises hamstring stretch Supine Exercise Name d/c due to possible proximal hamstring strain hip abduction isometric Side bilateral Resistance level 1 band around thighs Equipment Used bridge position with toes elevated (heels down) Reps/Minutes 1x30, 4x45 with 1' break between ea set Comments cued ppt for form, edu for pain free; reports pain free, good activation Sitting Exercises hamstring isometric Sitting Exercise Name isometric: 1. knee flexed, 2. knee extended Side right Reps/Minutes 1. 10x10 hold ea, 2. 10x5 hold Comments cued to remain pain free isometrics; no increase symptoms, good activation Standing Exercises hip abduction Standing Exercise Name glute medius activation Side bilateral Equipment Used single leg on wall Reps/Minutes 1x30 Comments pain free calf stretch Side bilateral Equipment Used NAILA Reps/Minutes 1x60 Comments slight lean fwd; post HS ramses; cued lower heels to limit proximal stretch Self-Care/Home Management Treatment Education Patient Education Home Exercise Program Other Education HEP: seated hamstring isometrics, changed glute bridge to heel dig without lift in hooklying PT-OP-R Modalities Start: 12/20/23 13:02 Freq: Status: Active Protocol: Document 01/04/24 13:06 NBM (Rec: 01/04/24 13:52 NBM [id number]) Hot Pack/Cold Pack Treatment cold Location R glute/HS insertions and R hip using strap Patient Position Sidelying Patient Tolerance Good Comments calvo and all needs within reach. 10 minutes PT-OP-T Assessment and Plan Start: 12/20/23 13:02 Freq: Status: Active Protocol: Document 01/08/24 13:03 NM (Rec: 01/08/24 13:47 NM [id number]) Physical Therapy Assessment Goals Five Impairment HEP Short Term Goal (STG) Pt will report compliance with HEP at least 3x/wk in order to maximize progression with PT and demonstrate improved activity tolerance 01/04/24: Pt is doing HEP every night alternating iso hip abd and bridging as instructed. STG Duration 6 weeks [facility] Goal (LTG) Pt will report compliance with HEP at least 3x/wk in order to transition into maintenance program and promote healthier activity habits upon discharge from PT LTG Duration 12 weeks Four Impairment sleep Short Term Goal (STG) Pt will report that she is waking less than 2x/wk due to hip pain in order to show improved symptom management and QOL 01/03: R hip pain bothered her once this week and it was going to sleep but did not wake her up. STG Duration 6 weeks [employer] Goal (LTG) Pt will report that she does not wake at night due to hip pain in order to show improved symptom management and QOL LTG Duration 12 weeks Three Impairment function, gait Short Term Goal (STG) Pt will report that she is able to ambulate at least 30 minutes without increase in baseline pain during errands or when walking her dog in order to demonstrate improved activity tolerance and QOL STG Duration 6 weeks [facility] Goal (LTG) Pt will report no limitation due to hip pain in ambulation distance or surface in order to demonstrate improved activity tolerance when walking her dog or during errands LTG Duration 12 weeks Two Impairment strength Impairment difficulty with transition from sit > stand Short Term Goal (STG) Pt will be able to transfer from sitting to standing at least 10 times without UE assistance and no increase in baseline pain in order to demonstrate increased BLE strength, improved symptom management and ability to perform transfers STG Duration 6 weeks [employer] Goal (LTG) Pt will complete 30 sec sit to stand at age-appropriate norms (15) without UE assistance or increase in baseline pain in order to demonstrate increased BLE strength, improved symptom management and ability to perform transfers LTG Duration 12 weeks One Impairment strength Short Term Goal (STG) Pt will improve B hip extension and abduction strength to at least 4/5 MMT in order to demonstrate increased hip strength for balance and gait STG Duration 6 weeks [employer] Goal (LTG) Pt will improve B hip extension and abduction strength to at least 4+/5 MMT in order to demonstrate increased hip strength for balance and gait LTG Duration 12 weeks Assessment Summary Assessment Pt with good response to hamstring and glute isometrics today. Pat reports that the symptoms in her proximal hamstring improve as she continues with the isometrics, pain free with significantly less discomfort at her proximal hamstring. At end of session, pt reports no longer feeling her proximal hamstring tenderness at all. Continues to have good feedback to hip abduction isometrics, able to perform without pain or symptom increase. Educated to try pillow under hips at night when sleeping. Recommended performing HEP every other day . Depending on pt progression, pt will be referred back to PCP for further assessment and imaging. Pt would benefit from skilled PT for progressive tendon loading bilaterally for symptom reduction and to improve activity tolerance. Physical Therapy Plan Frequency and Duration Frequency of Treatment 2x/Week Duration of treatment (weeks) 12 Plan of Care Start Date 12/20/23 Plan of Care End Date 03/14/24 Therapeutic Interventions Therapeutic Interventions Balance Training,Gait Training ,Home Exercise Program,Joint Mobilizations,Manual Therapy, Neuromuscular Re-education, Orthotic/Prosthetic Management ,Patient/Caregiver Education, Self-Care/Home Management, Sensory Integration,Soft Tissue Mobilization,Taping, Therapeutic Activities, Therapeutic Exercises Modalities Cold Pack/Ice Massage,Electric Stimulation,Hot Packs, Traction- Mechanical, Ultrasound Next Visit Focus/Plan Next Note Type Treatment Note Next Visit Plan Retry hamstring isometrics in sitting and bridge without lift; use abd band for both, no stretching HS plan: Progressive tendon loading of glute medius bilaterally Hip abduction/IR/ER isometrics in supine [id number] at 50-70% force, progress to sitting. As progress, trial sidelying isometric hold with pillows under legs Follow with functional movement (e.g single leg bridge, sit to stand) Avoid ER/IR stretch for now, minimize ADD Manual - STM to glutes, HS
--- NOTE | 2024-01-22 15:36 | PT.OTN ---
Current Diagnoses Pain in right hip (01/22/24) Pain in left hip (01/22/24) Other lack of coordination (01/22/24) Weakness (01/22/24) Physical Therapy Treatment Note PT-OP-A Visit Information Start: 12/20/23 13:02 Freq: Status: Active Protocol: Document 01/22/24 14:35 NM (Rec: 01/22/24 15:36 NM [id number]) Out-Patient Physical Therapy Visit Information Visit Information Visit Type Progress Note Visit Start Time 14:36 Visit Stop Time 15:15 Visit Number 7 PT-OP-B Current Condition Start: 12/20/23 13:02 Freq: Status: Active Protocol: Document 12/20/23 13:02 NM (Rec: 12/20/23 13:48 NM [id number]) Current Condition History of Current Condition Onset Date several years Current Complaints pain, tightness History of Current Condition Pt presents with achy hips bilaterally. Pain has woken pt during the night, on the side that she sleeps on. Pt reports difficulty with walking. Hips feel super tight . She thinks that her hip problems began initially when she walking funny when she had ankle achilles tendonitis, has had procedures in 2016- 2016. Pt denies back pain. Denies numbnes and tingling. Recently had x-rays. Hips do not hurt at the same time, but equally bad. States that pain comes and go's, not happening as much. 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 States that she does not have difficulty with exercises, but hours later. States that she still has pain with sleeping, states pain moves around at her hips; no change when she changes position (RLE only). States walking is newest activity. 10 minutes max with walking (walked 15 minutes at 16 of january, which caused increased discomfort) and standing PT-OP-E Functional Tests Start: 12/20/23 13:02 Freq: Status: Active Protocol: Document 12/20/23 13:02 NM (Rec: 12/20/23 15:44 NM [id number]) Functional Tests Other Forward Trunk Flexion Test Name of Test measured finger to floor Score 6 PT-OP-F Manual Assessment Start: 12/20/23 13:02 Freq: Status: Active Protocol: Document 12/20/23 13:02 NM (Rec: 12/20/23 15:44 NM [id number]) Manual Assessments Soft Tissue Assessment Soft Tissue Mobility Assessment Increased glute tightness bilaterally. Tenderness along gluteal tendons, greater trochanter Joint Mobility Assessment Joint Mobility Assessment Hip flexion limited bilaterally, partially due to girth. Hip rotation (IR) reproduces pain only AROM. No groin pain or pain with joint scouring. Pain also with active ER during sidelying clam PT-OP-G Mobility & Gait Start: 12/20/23 13:02 Freq: Status: Active Protocol: Document 12/20/23 13:02 NM (Rec: 12/20/23 13:48 NM [id number]) OP Gait Assessment Gait Gait Assistance Required: Independent Distance (Feet) 150 Assistive Devices Assistive Device None Gait Deviations General Gait Pattern Antalgic,Flexed Trunk Factors Limiting Gait Function Factors Limiting Gait Function Decreased Strength,Limited Range of Motion,Pain Comments Gait Comments Stiffness PT-OP-J Posture/Palpation/Skin Start: 12/20/23 13:02 Freq: Status: Active Protocol: Document 12/20/23 13:02 NM (Rec: 12/20/23 13:48 NM [id number]) Posture Evaluation Position Standing Head/C-Spine Posture Forward Head Thorax Posture (L) Prominent L-Spine Posture Increased Lordosis Pelvis Posture Anteriorly Tilted Weight Distribution Balanced Hip Posture (L) Externally Rotated,(R) Externally Rotated Knee Posture (L) Genu Valgus,(R) Genu Valgus Comments Posture Comments L thorax more prominent posteriorly than R thorax. No palpable curve in spine Palpation Assessment Location R hip Palpation Details Tenderness behind greater trochanter, glute muscle belly and tendon. Medium palpable bursa or knot in gluteus medius muscle belly No tenderness in groin or anterior hip, IT band L hip Palpation Details Tenderness behind greater trochanter, glute muscle belly and tendon. Small palpable bursa or knot in gluteus medius muscle belly No tenderness in groin or anterior hip, IT band PT-OP-K Range of Motion Start: 12/20/23 13:02 Freq: Status: Active Protocol: Document 01/22/24 14:35 NM (Rec: 01/22/24 15:36 NM [id number]) Hip Goniometric Range of Motion Hip Right Flexion w/Knee Flexed 94 Abduction 25 Internal Rotation 28 External Rotation 30 Comments tight hip flex 01/22/24: 35 deg IR, 35 deg ER Left Flexion w/Knee Flexed 105 Abduction 25 Internal Rotation 40 External Rotation 28 Comments tight w/ ER, hip pointer IR at glute 01/22/24: 35 deg IR, 30 deg ER PT-OP-L Special Tests Start: 12/20/23 13:02 Freq: Status: Active Protocol: Document 12/20/23 13:02 NM (Rec: 12/20/23 13:48 NM [id number]) Special Tests Hip Special Tests John Paul's test Test Results - Sherri's Test Test Results + Log Roll Test Test Results - Straight Leg Raise Test Results - Comments no groin pain but discomfort reported at lateral hip Posterior Labral Test Test Results - Anterior Labral Test Test Results - scour Test Results - PT-OP-M Strength Start: 12/20/23 13:02 Freq: Status: Active Protocol: Document 01/22/24 14:35 NM (Rec: 01/22/24 15:36 NM [id number]) Hip Strength Hip Manual Muscle Testing Right Flexion (L2) 4 Good Extension (S1) 4- Good- Abduction 4- Good- Adduction 4 Good External Rotation 4 Good Internal Rotation 4 Good Comments abd and IR reproduce pain 01/22/24: 4/5 for all; no pain reproduced Left Flexion (L2) 4 Good Extension (S1) 4- Good- Abduction 4- Good- External Rotation 4 Good Internal Rotation 4 Good Comments IR reproduced pain, none with abduction but weaker 01/22/24: 4/5 for all; no pain reproduced PT-OP-Q Treatments Start: 12/20/23 13:02 Freq: Status: Active Protocol: Document 01/22/24 14:35 NM (Rec: 01/22/24 15:36 NM [id number]) Therapeutic Exercises Supine Exercises figure 4 stretch Supine Exercise Name trialed in PT- opp knee extended then flexed Side bilateral Reps/Minutes 1x30 ea Sitting Exercises hip ER Side bilateral Resistance level 1 band Reps/Minutes 10 ea side Comments good activation; denies pain; feels less than hip IR; post manual tx hip IR Side bilateral Resistance AROM Equipment Used ball between knees for hip ADD Reps/Minutes 10 ea side Comments good activation, R>L; denies pain Standing Exercises hip abduction Standing Exercise Name standing hip ext isometric Side bilateral Resistance level 1 band at thighs Reps/Minutes 3x45 with 2' break in between ea set Comments reports activation; denies pain; cued push feet into floor Manual Therapy Treatment Consent Patient gave verbal consent for manual Yes treatment Soft Tissue Mobilization B hips/glutes Body Location R glutes/piriformis, hamstring insertions Mobilization Type Oscillations,Rolling,Strumming Intensity/Depth Moderate Body Position Sidelying Comments Tenderness noted to piriformis , glute medius/julius. No tenderness along proximal hamstring insertion. Pt has good tolerance for soft tissue mobilization Performed mobilization with movement using hip IR/ER with piriformis Joint Mobilizations B hip Direction inferior-lateral, lateral Grade III Body Position Hooklying Reps/Duration 4x30 ea Comments Progression from grade II to grade III joint mobilizations to improve hip mobility, especially into hip rotation. Pt monitored for pain, tolerates well. Self-Care/Home Management Treatment Education Patient Education Home Exercise Program Other Education Educated to monitor tolerance to exercise and symptoms, escpecially same night and next day after session Recommend pt trial discontinuing exercises to determine tolerance to new exercises trialed today PT-OP-R Modalities Start: 12/20/23 13:02 Freq: Status: Active Protocol: Document 01/11/24 13:08 NBM (Rec: 01/11/24 13:50 NBM [id number]) Hot Pack/Cold Pack Treatment cold Location R glute/HS insertions and R hip using strap Patient Position Sidelying Patient Tolerance Good Comments calvo and all needs within reach. 10 minutes PT-OP-T Assessment and Plan Start: 12/20/23 13:02 Freq: Status: Active Protocol: Document 01/22/24 14:35 NM (Rec: 07/09/24 15:36 NM [id number]) Physical Therapy Assessment Goals Five Impairment HEP Short Term Goal (STG) Pt will report compliance with HEP at least 3x/wk in order to maximize progression with PT and demonstrate improved activity tolerance 01/04/24: Pt is doing HEP every night alternating iso hip abd and bridging as instructed. STG Duration 6 weeks MET Cost Accounting Analyst Goal (LTG) Pt will report compliance with HEP at least 3x/wk in order to transition into maintenance program and promote healthier activity habits upon discharge from PT LTG Duration 12 weeks Four Impairment sleep Short Term Goal (STG) Pt will report that she is waking less than 2x/wk due to hip pain in order to show improved symptom management and QOL 01/03: R hip pain bothered her once this week and it was going to sleep but did not wake her up. 01/22/24: waking every other night instead of every night ( day after exercises) STG Duration 6 weeks PROGRESSING Intermediate Goal (LTG) Pt will report that she does not wake at night due to hip pain in order to show improved symptom management and QOL LTG Duration 12 weeks Three Impairment function, gait Short Term Goal (STG) Pt will report that she is able to ambulate at least 30 minutes without increase in baseline pain during errands or when walking her dog in order to demonstrate improved activity tolerance and QOL 01/22/24: 10 minutes ambulation with increased pain STG Duration 6 weeks NOT MET Intermediate Goal (LTG) Pt will report no limitation due to hip pain in ambulation distance or surface in order to demonstrate improved activity tolerance when walking her dog or during errands LTG Duration 12 weeks Two Impairment strength Impairment difficulty with transition from sit > stand Short Term Goal (STG) Pt will be able to transfer from sitting to standing at least 10 times without UE assistance and no increase in baseline pain in order to demonstrate increased BLE strength, improved symptom management and ability to perform transfers 01/22/24: In previous sessions, pt unable to perform STS without increased gluteal pain ; only able to perform 5 reps STG Duration 6 weeks NOT MET Cost Accounting Analyst Goal (LTG) Pt will complete 30 sec sit to stand at age-appropriate norms (15) without UE assistance or increase in baseline pain in order to demonstrate increased BLE strength, improved symptom management and ability to perform transfers LTG Duration 12 weeks One Impairment strength Short Term Goal (STG) Pt will improve B hip extension and abduction strength to at least 4/5 MMT in order to demonstrate increased hip strength for balance and gait 01/22/24: 4/5 MMT STG Duration 6 weeks MET Cost Accounting Analyst Goal (LTG) Pt will improve B hip extension and abduction strength to at least 4+/5 MMT in order to demonstrate increased hip strength for balance and gait LTG Duration 12 weeks Progress Towards Goals Progress Towards Goals Progressing Toward Goals,Slow Progress - Other Assessment Summary Assessment Pat tolerated session well without increased pain. She normally does not have pain during sessions, but reports that she does have increased pain in B glutes after session , so unable to perform HEP or participate in exercsies more than every other day. Trialed hip joint mobilizations and soft tissue mobilization of glutes/piriformis/hamstrings to improve muscle relaxation and tissue length. Pt responds well to joint mobilizations and demonstrates increased hip rotation ROM bilaterally. Trialed hip ER and IR AROM to begin initiating strengthening . Pt has more discomfort with hip IR but denies pain with activity. Progressed to standing hip abduction isometric bilaterally with band vs bridge to determine if pt has better symptom management. Cued to push feet into the floor; pt has good feedback for standing isometrics over bridging. Physical Therapy Plan Frequency and Duration Frequency of Treatment 2x/Week Duration of treatment (weeks) 12 Plan of Care Start Date 12/20/23 Plan of Care End Date 03/14/24 Therapeutic Interventions Therapeutic Interventions Balance Training,Gait Training ,Home Exercise Program,Joint Mobilizations,Manual Therapy, Neuromuscular Re-education, Orthotic/Prosthetic Management ,Patient/Caregiver Education, Self-Care/Home Management, Sensory Integration,Soft Tissue Mobilization,Taping, Therapeutic Activities, Therapeutic Exercises Modalities Cold Pack/Ice Massage,Electric Stimulation,Hot Packs, Traction- Mechanical, Ultrasound Next Visit Focus/Plan Next Note Type Treatment Note Next Visit Plan Ask pt about tolerance to hip ER/IR/standing abduction and to break from HEP; if better, then retrial standing hip abd isometric with band at ankles, then hip ER/IR (trial resistance), quadruped hip IR/ ER; cont w/ STM/manual If poor tolerance, then continue with STM/manual; trial knee to chest with ball, single knee to chest, BKFO, core bracing, bridge w/o isometric Avoid hip ADD (cross body) Manual - STM to glutes, HS
--- NOTE | 2024-01-30 13:47 | PT.OTN ---
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 Pain has woken pt during the night, on the side that she sleeps on. Pt reports difficulty with walking. Hips feel super tight . She thinks that her hip problems began initially when she walking funny when she had ankle achilles tendonitis, has had procedures in 2016- 2016. Pt denies back pain. Denies numbnes and tingling. Recently had x-rays. Hips do not hurt at the same time, but equally bad. States that pain comes and go's, not happening as much. 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 Pain tends to be in opposite hip from which she is laying. PT-OP-E Functional Tests Start: 12/20/23 13:02 Freq: Status: Active Protocol: Document 12/20/23 13:02 NM (Rec: 12/20/23 15:44 NM [id number]) Functional Tests Other Forward Trunk Flexion Test Name of Test measured finger to floor Score 6 PT-OP-F Manual Assessment Start: 12/20/23 13:02 Freq: Status: Active Protocol: Document 12/20/23 13:02 NM (Rec: 12/20/23 15:44 NM [id number]) Manual Assessments Soft Tissue Assessment Soft Tissue Mobility Assessment Increased glute tightness bilaterally. Tenderness along gluteal tendons, greater trochanter Joint Mobility Assessment Joint Mobility Assessment Hip flexion limited bilaterally, partially due to girth. Hip rotation (IR) reproduces pain only AROM. No groin pain or pain with joint scouring. Pain also with active ER during sidelying clam PT-OP-G Mobility & Gait Start: 12/20/23 13:02 Freq: Status: Active Protocol: Document 12/20/23 13:02 NM (Rec: 12/20/23 13:48 NM [id number]) OP Gait Assessment Gait Gait Assistance Required: Independent Distance (Feet) 150 Assistive Devices Assistive Device None Gait Deviations General Gait Pattern Antalgic,Flexed Trunk Factors Limiting Gait Function Factors Limiting Gait Function Decreased Strength,Limited Range of Motion,Pain Comments Gait Comments Stiffness PT-OP-J Posture/Palpation/Skin Start: 12/20/23 13:02 Freq: Status: Active Protocol: Document 12/20/23 13:02 NM (Rec: 12/20/23 13:48 NM [id number]) Posture Evaluation Position Standing Head/C-Spine Posture Forward Head Thorax Posture (L) Prominent L-Spine Posture Increased Lordosis Pelvis Posture Anteriorly Tilted Weight Distribution Balanced Hip Posture (L) Externally Rotated,(R) Externally Rotated Knee Posture (L) Genu Valgus,(R) Genu Valgus Comments Posture Comments L thorax more prominent posteriorly than R thorax. No palpable curve in spine Palpation Assessment Location R hip Palpation Details Tenderness behind greater trochanter, glute muscle belly and tendon. Medium palpable bursa or knot in gluteus medius muscle belly No tenderness in groin or anterior hip, IT band L hip Palpation Details Tenderness behind greater trochanter, glute muscle belly and tendon. Small palpable bursa or knot in gluteus medius muscle belly No tenderness in groin or anterior hip, IT band PT-OP-K Range of Motion Start: 12/20/23 13:02 Freq: Status: Active Protocol: Document 01/22/24 14:35 NM (Rec: 01/22/24 15:36 NM [id number]) Hip Goniometric Range of Motion Hip Right Flexion w/Knee Flexed 94 Abduction 25 Internal Rotation 28 External Rotation 30 Comments tight hip flex 01/22/24: 35 deg IR, 35 deg ER Left Flexion w/Knee Flexed 105 Abduction 25 Internal Rotation 40 External Rotation 28 Comments tight w/ ER, hip pointer IR at glute 01/22/24: 35 deg IR, 30 deg ER PT-OP-L Special Tests Start: 12/20/23 13:02 Freq: Status: Active Protocol: Document 12/20/23 13:02 NM (Rec: 12/20/23 13:48 NM [id number]) Special Tests Hip Special Tests John Paul's test Test Results - Sherri's Test Test Results + Log Roll Test Test Results - Straight Leg Raise Test Results - Comments no groin pain but discomfort reported at lateral hip Posterior Labral Test Test Results - Anterior Labral Test Test Results - scour Test Results - PT-OP-M Strength Start: 12/20/23 13:02 Freq: Status: Active Protocol: Document 01/22/24 14:35 NM (Rec: 01/22/24 15:36 NM [id number]) Hip Strength Hip Manual Muscle Testing Right Flexion (L2) 4 Good Extension (S1) 4- Good- Abduction 4- Good- Adduction 4 Good External Rotation 4 Good Internal Rotation 4 Good Comments abd and IR reproduce pain 01/22/24: 4/5 for all; no pain reproduced Left Flexion (L2) 4 Good Extension (S1) 4- Good- Abduction 4- Good- External Rotation 4 Good Internal Rotation 4 Good Comments IR reproduced pain, none with abduction but weaker 01/22/24: 4/5 for all; no pain reproduced PT-OP-Q Treatments Start: 12/20/23 13:02 Freq: Status: Active Protocol: Document 01/30/24 13:42 TS (Rec: 01/30/24 16:03 TS [id number]) Therapeutic Exercises Supine Exercises SKC Supine Exercise Name single knee to chest Side bilateral Reps/Minutes 2x10 Bryce stretch Side bilateral Equipment Used table Reps/Minutes 2x30 Comments Feels good stretch more so on R side Core Supine Exercise Name Core bracing iso, B knees to chest, press hands into quads Reps/Minutes 5x10 holds Comments challenging, feels in core Sitting Exercises hip IR Sitting Exercise Name Hold 5 secs Side bilateral Resistance AROM Equipment Used ball between knees for hip ADD Reps/Minutes 10 ea side Comments good activation, R>L; denies pain Standing Exercises hip abduction Standing Exercise Name standing hip ext isometric Side bilateral Resistance level 1 band at thighs Reps/Minutes 2x45 Comments Reports act, denies pain, feels in stance leg also Manual Therapy Treatment Soft Tissue Mobilization B hips/glutes Body Location R glutes/piriformis Mobilization Type Oscillations,Rolling,Strumming Intensity/Depth Moderate Body Position Sidelying Comments Tenderness noted to R piriformis, glute medius/ julius. Pt has good tolerance for soft tissue mobilization to L hip. Joint Mobilizations B hip Direction inferior-lateral, lateral Grade III Body Position Hooklying Comments Pt toelrated well with no reports of increased pain. PT-OP-R Modalities Start: 12/20/23 13:02 Freq: Status: Active Protocol: Document 01/11/24 13:08 NBM (Rec: 01/11/24 13:50 NBM [id number]) Hot Pack/Cold Pack Treatment cold Location R glute/HS insertions and R hip using strap Patient Position Sidelying Patient Tolerance Good Comments calvo and all needs within reach. 10 minutes PT-OP-T Assessment and Plan Start: 12/20/23 13:02 Freq: Status: Active Protocol: Document 01/30/24 13:42 TS (Rec: 01/30/24 16:03 TS [id number]) Physical Therapy Assessment Goals Five Impairment HEP Short Term Goal (STG) Pt will report compliance with HEP at least 3x/wk in order to maximize progression with PT and demonstrate improved activity tolerance 01/04/24: Pt is doing HEP every night alternating iso hip abd and bridging as instructed. STG Duration 6 weeks MET Director Home Goal (LTG) Pt will report compliance with HEP at least 3x/wk in order to transition into maintenance program and promote healthier activity habits upon discharge from PT LTG Duration 12 weeks Four Impairment sleep Short Term Goal (STG) Pt will report that she is waking less than 2x/wk due to hip pain in order to show improved symptom management and QOL 01/03: R hip pain bothered her once this week and it was going to sleep but did not wake her up. 01/22/24: waking every other night instead of every night ( day after exercises) STG Duration 6 weeks PROGRESSING Director Home Goal (LTG) Pt will report that she does not wake at night due to hip pain in order to show improved symptom management and QOL LTG Duration 12 weeks Three Impairment function, gait Short Term Goal (STG) Pt will report that she is able to ambulate at least 30 minutes without increase in baseline pain during errands or when walking her dog in order to demonstrate improved activity tolerance and QOL 01/22/24: 10 minutes ambulation with increased pain STG Duration 6 weeks NOT MET Director Home Goal (LTG) Pt will report no limitation due to hip pain in ambulation distance or surface in order to demonstrate improved activity tolerance when walking her dog or during errands LTG Duration 12 weeks Two Impairment strength Impairment difficulty with transition from sit > stand Short Term Goal (STG) Pt will be able to transfer from sitting to standing at least 10 times without UE assistance and no increase in baseline pain in order to demonstrate increased BLE strength, improved symptom management and ability to perform transfers 01/22/24: In previous sessions, pt unable to perform STS without increased gluteal pain ; only able to perform 5 reps STG Duration 6 weeks NOT MET Director Home Goal (LTG) Pt will complete 30 sec sit to stand at age-appropriate norms (15) without UE assistance or increase in baseline pain in order to demonstrate increased BLE strength, improved symptom management and ability to perform transfers LTG Duration 12 weeks One Impairment strength Short Term Goal (STG) Pt will improve B hip extension and abduction strength to at least 4/5 MMT in order to demonstrate increased hip strength for balance and gait 01/22/24: 4/5 MMT STG Duration 6 weeks MET Senior Care Goal (LTG) Pt will improve B hip extension and abduction strength to at least 4+/5 MMT in order to demonstrate increased hip strength for balance and gait LTG Duration 12 weeks Assessment Summary Assessment Pt continues to respond well to manual therapy. Reports R piriformis is sensitive and requires decreased pressure. Progressed pt's core ex with core iso and single knee to chest. Core iso difficult for pt but did complete. She responded well to bryce stretch, feels deeper stretch on R side. SKC and bryce stretch added to HEP. Physical Therapy Plan Next Visit Focus/Plan Next Note Type Treatment Note Next Visit Plan Assess carryover and response to core ex and bryce stretch. retrial standing hip abd isometric with band at ankles, then hip ER/IR (trial resistance), quadruped hip IR/ ER; cont w/ STM/manual If poor tolerance, then continue with STM/manual; trial knee to chest with ball, single knee to chest, BKFO, core bracing, bridge w/o isometric Avoid hip ADD (cross body) Manual - STM to glutes, HS
--- NOTE | 2024-02-05 15:58 | PT.OTN ---
Current Diagnoses Pain in right hip (02/05/24) Pain in left hip (02/05/24) Other lack of coordination (02/05/24) Weakness (02/05/24) Physical Therapy Treatment Note PT-OP-A Visit Information Start: 12/20/23 13:02 Freq: Status: Active Protocol: Document 02/05/24 13:03 NM (Rec: 02/05/24 13:46 NM [id number]) Out-Patient Physical Therapy Visit Information Visit Information Visit Type Treatment Note Visit Start Time 13:04 Visit Stop Time 13:43 Visit Number 9 PT-OP-B Current Condition Start: 12/20/23 13:02 Freq: Status: Active Protocol: Document 12/20/23 13:02 NM (Rec: 12/20/23 13:48 NM [id number]) Current Condition History of Current Condition Onset Date several years Current Complaints pain, tightness History of Current Condition Pt presents with achy hips bilaterally. Pain has woken pt during the night, on the side that she sleeps on. Pt reports difficulty with walking. Hips feel super tight . She thinks that her hip problems began initially when she walking funny when she had ankle achilles tendonitis, has had procedures in 2016- 2016. Pt denies back pain. Denies numbnes and tingling. Recently had x-rays. Hips do not hurt at the same time, but equally bad. States that pain comes and go's, not happening as much. 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 States that she feels more normal now but only resovled yesterday. States that she feels like she only gets pain at night 1-2/wk; no longer waking up due to pain last week. Reports that long amount of walking is painful - 45 to 1 hr 15 min. PT-OP-E Functional Tests Start: 12/20/23 13:02 Freq: Status: Active Protocol: Document 12/20/23 13:02 NM (Rec: 12/20/23 15:44 NM [id number]) Functional Tests Other Forward Trunk Flexion Test Name of Test measured finger to floor Score 6 PT-OP-F Manual Assessment Start: 12/20/23 13:02 Freq: Status: Active Protocol: Document 12/20/23 13:02 NM (Rec: 12/20/23 15:44 NM [id number]) Manual Assessments Soft Tissue Assessment Soft Tissue Mobility Assessment Increased glute tightness bilaterally. Tenderness along gluteal tendons, greater trochanter Joint Mobility Assessment Joint Mobility Assessment Hip flexion limited bilaterally, partially due to girth. Hip rotation (IR) reproduces pain only AROM. No groin pain or pain with joint scouring. Pain also with active ER during sidelying clam PT-OP-G Mobility & Gait Start: 12/20/23 13:02 Freq: Status: Active Protocol: Document 12/20/23 13:02 NM (Rec: 12/20/23 13:48 NM [id number]) OP Gait Assessment Gait Gait Assistance Required: Independent Distance (Feet) 150 Assistive Devices Assistive Device None Gait Deviations General Gait Pattern Antalgic,Flexed Trunk Factors Limiting Gait Function Factors Limiting Gait Function Decreased Strength,Limited Range of Motion,Pain Comments Gait Comments Stiffness PT-OP-J Posture/Palpation/Skin Start: 12/20/23 13:02 Freq: Status: Active Protocol: Document 12/20/23 13:02 NM (Rec: 12/20/23 13:48 NM [id number]) Posture Evaluation Position Standing Head/C-Spine Posture Forward Head Thorax Posture (L) Prominent L-Spine Posture Increased Lordosis Pelvis Posture Anteriorly Tilted Weight Distribution Balanced Hip Posture (L) Externally Rotated,(R) Externally Rotated Knee Posture (L) Genu Valgus,(R) Genu Valgus Comments Posture Comments L thorax more prominent posteriorly than R thorax. No palpable curve in spine Palpation Assessment Location R hip Palpation Details Tenderness behind greater trochanter, glute muscle belly and tendon. Medium palpable bursa or knot in gluteus medius muscle belly No tenderness in groin or anterior hip, IT band L hip Palpation Details Tenderness behind greater trochanter, glute muscle belly and tendon. Small palpable bursa or knot in gluteus medius muscle belly No tenderness in groin or anterior hip, IT band PT-OP-K Range of Motion Start: 12/20/23 13:02 Freq: Status: Active Protocol: Document 01/22/24 14:35 NM (Rec: 01/22/24 15:36 NM [id number]) Hip Goniometric Range of Motion Hip Right Flexion w/Knee Flexed 94 Abduction 25 Internal Rotation 28 External Rotation 30 Comments tight hip flex 01/22/24: 35 deg IR, 35 deg ER Left Flexion w/Knee Flexed 105 Abduction 25 Internal Rotation 40 External Rotation 28 Comments tight w/ ER, hip pointer IR at glute 01/22/24: 35 deg IR, 30 deg ER PT-OP-L Special Tests Start: 12/20/23 13:02 Freq: Status: Active Protocol: Document 12/20/23 13:02 NM (Rec: 12/20/23 13:48 NM [id number]) Special Tests Hip Special Tests John Paul's test Test Results - Sherri's Test Test Results + Log Roll Test Test Results - Straight Leg Raise Test Results - Comments no groin pain but discomfort reported at lateral hip Posterior Labral Test Test Results - Anterior Labral Test Test Results - scour Test Results - PT-OP-M Strength Start: 12/20/23 13:02 Freq: Status: Active Protocol: Document 01/22/24 14:35 NM (Rec: 01/22/24 15:36 NM [id number]) Hip Strength Hip Manual Muscle Testing Right Flexion (L2) 4 Good Extension (S1) 4- Good- Abduction 4- Good- Adduction 4 Good External Rotation 4 Good Internal Rotation 4 Good Comments abd and IR reproduce pain 01/22/24: 4/5 for all; no pain reproduced Left Flexion (L2) 4 Good Extension (S1) 4- Good- Abduction 4- Good- External Rotation 4 Good Internal Rotation 4 Good Comments IR reproduced pain, none with abduction but weaker 01/22/24: 4/5 for all; no pain reproduced PT-OP-Q Treatments Start: 12/20/23 13:02 Freq: Status: Active Protocol: Document 02/05/24 13:03 NM (Rec: 02/05/24 13:46 NM [id number]) Therapeutic Exercises Supine Exercises Core Supine Exercise Name 1. isometric into pillow w/ TrA, 2. B september w/ alt Reps/Minutes 1. 5x5, 2. 2x5 Comments improved TrA w/ cueing Sidelying Exercises reverse clams Side bilateral Equipment Used pillow between legs Reps/Minutes 2x10 Comments pain free on L; R- reports activation but denies pain, improves w/ motion clams Side bilateral Equipment Used pillow between legs Reps/Minutes 2x10 Comments pain free on L; not pain on R but harder and feels more activation, tight Standing Exercises carries Standing Exercise Name 1. suitcase, 2. lateral flexion stretch to opp side Side bilateral Resistance 5# db (uni) Reps/Minutes 1. 3x8 ft ea, 2. 8 with 3 hold Comments pain free in back, good stretch; reports glute discomfort w/ walk hip abduction Standing Exercise Name isometric Side bilateral Resistance level 1 band at ankles Reps/Minutes 3x30 Comments denies pain but reports increase activation Manual Therapy Treatment Consent Patient gave verbal consent for manual Yes treatment Soft Tissue Mobilization B hips/glutes Body Location B glutes/piriformis, HS insertion Mobilization Type Oscillations,Rolling,Strumming Intensity/Depth Moderate Body Position Sidelying Comments Tenderness noted to R piriformis, glute medius/ julius. Pt has good tolerance for soft tissue mobilization to L hip. 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 10 minutes PT-OP-T Assessment and Plan Start: 12/20/23 13:02 Freq: Status: Active Protocol: Document 02/05/24 13:03 NM (Rec: 02/05/24 13:46 NM [id number]) Physical Therapy Assessment Goals Five Impairment HEP Short Term Goal (STG) Pt will report compliance with HEP at least 3x/wk in order to maximize progression with PT and demonstrate improved activity tolerance 01/04/24: Pt is doing HEP every night alternating iso hip abd and bridging as instructed. STG Duration 6 weeks MET Longterm Goal (LTG) Pt will report compliance with HEP at least 3x/wk in order to transition into maintenance program and promote healthier activity habits upon discharge from PT LTG Duration 12 weeks Four Impairment sleep Short Term Goal (STG) Pt will report that she is waking less than 2x/wk due to hip pain in order to show improved symptom management and QOL 01/03: R hip pain bothered her once this week and it was going to sleep but did not wake her up. 01/22/24: waking every other night instead of every night ( day after exercises) 02/05/24: states waking only 1- 2x/wk due to pain STG Duration 6 weeks MET Longterm Goal (LTG) Pt will report that she does not wake at night due to hip pain in order to show improved symptom management and QOL LTG Duration 12 weeks Three Impairment function, gait Short Term Goal (STG) Pt will report that she is able to ambulate at least 30 minutes without increase in baseline pain during errands or when walking her dog in order to demonstrate improved activity tolerance and QOL 01/22/24: 10 minutes ambulation with increased pain STG Duration 6 weeks NOT MET Recreation Superintendent Goal (LTG) Pt will report no limitation due to hip pain in ambulation distance or surface in order to demonstrate improved activity tolerance when walking her dog or during errands LTG Duration 12 weeks Two Impairment strength Impairment difficulty with transition from sit > stand Short Term Goal (STG) Pt will be able to transfer from sitting to standing at least 10 times without UE assistance and no increase in baseline pain in order to demonstrate increased BLE strength, improved symptom management and ability to perform transfers 01/22/24: In previous sessions, pt unable to perform STS without increased gluteal pain ; only able to perform 5 reps STG Duration 6 weeks NOT MET Longterm Goal (LTG) Pt will complete 30 sec sit to stand at age-appropriate norms (15) without UE assistance or increase in baseline pain in order to demonstrate increased BLE strength, improved symptom management and ability to perform transfers LTG Duration 12 weeks One Impairment strength Short Term Goal (STG) Pt will improve B hip extension and abduction strength to at least 4/5 MMT in order to demonstrate increased hip strength for balance and gait 01/22/24: 4/5 MMT STG Duration 6 weeks MET Recreation Superintendent Goal (LTG) Pt will improve B hip extension and abduction strength to at least 4+/5 MMT in order to demonstrate increased hip strength for balance and gait LTG Duration 12 weeks Assessment Summary Assessment Pt tolerated session well. She is more challenged with clam/ reverse clam on R side than L; denies pain with exercises but reports increased activation on R side compared to L side. Good response to QL stretching as shortened bilaterally on patient; trialed carries, but pt has glute pain with carries and does not feel in low back. Trialed clams and reverse clams for hip rotation strengthening; pt feels more activation on R side than L but denies pain. Demos improved core bracing with verbal and tactile cues. Pt would benefit from skilled PT for progressive strengthening of BLE/core in order to improve symptom management and ability to perform ADLs. Physical Therapy Plan Frequency and Duration Frequency of Treatment 2x/Week Duration of treatment (weeks) 12 Plan of Care Start Date 12/20/23 Plan of Care End Date 03/14/24 Therapeutic Interventions Therapeutic Interventions Balance Training,Gait Training ,Home Exercise Program,Joint Mobilizations,Manual Therapy, Neuromuscular Re-education, Orthotic/Prosthetic Management ,Patient/Caregiver Education, Self-Care/Home Management, Sensory Integration,Soft Tissue Mobilization,Taping, Therapeutic Activities, Therapeutic Exercises Modalities Cold Pack/Ice Massage,Electric Stimulation,Hot Packs, Traction- Mechanical, Ultrasound Next Visit Focus/Plan Next Note Type Treatment Note Next Visit Plan Assess clams/reverse. good response to jb and QL Assess carryover and response to core ex and jb stretch. retrial standing hip abd isometric with band at ankles, then hip ER/IR (trial resistance), quadruped hip IR/ ER; cont w/ STM/manual If poor tolerance, then continue with STM/manual; trial knee to chest with ball, single knee to chest, BKFO, core bracing, bridge w/o isometric Avoid hip ADD (cross body) Manual - STM to glutes, HS
--- NOTE | 2024-02-07 15:52 | PT.OTN ---
Current Diagnoses Pain in right hip (02/07/24) Pain in left hip (02/07/24) Other lack of coordination (02/07/24) Weakness (02/07/24) Physical Therapy Treatment Note PT-OP-A Visit Information Start: 12/20/23 13:02 Freq: Status: Active Protocol: Document 02/07/24 13:03 NM (Rec: 02/07/24 13:46 NM [id number]) Out-Patient Physical Therapy Visit Information Visit Information Visit Type Treatment Note Visit Start Time 13:04 Visit Stop Time 13:44 Visit Number 10 Evaluation Information Evaluation Date 12/20/23 PT-OP-B Current Condition Start: 12/20/23 13:02 Freq: Status: Active Protocol: Document 12/20/23 13:02 NM (Rec: 12/20/23 13:48 NM [id number]) Current Condition History of Current Condition Onset Date several years Current Complaints pain, tightness History of Current Condition Pt presents with achy hips bilaterally. Pain has woken pt during the night, on the side that she sleeps on. Pt reports difficulty with walking. Hips feel super tight . She thinks that her hip problems began initially when she walking funny when she had ankle achilles tendonitis, has had procedures in 2016- 2016. Pt denies back pain. Denies numbnes and tingling. Recently had x-rays. Hips do not hurt at the same time, but equally bad. States that pain comes and go's, not happening as much. 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 She did not try exercises yesterday but has been trying to stand/walk. She is having less pain in L hip (not waking up for 1.5 weeks); tight only . Right side continues to tight and weak, more bothersome with gait. Has not woken up at night due to pain. PT-OP-E Functional Tests Start: 12/20/23 13:02 Freq: Status: Active Protocol: Document 12/20/23 13:02 NM (Rec: 12/20/23 15:44 NM [id number]) Functional Tests Other Forward Trunk Flexion Test Name of Test measured finger to floor Score 6 PT-OP-F Manual Assessment Start: 12/20/23 13:02 Freq: Status: Active Protocol: Document 12/20/23 13:02 NM (Rec: 12/20/23 15:44 NM [id number]) Manual Assessments Soft Tissue Assessment Soft Tissue Mobility Assessment Increased glute tightness bilaterally. Tenderness along gluteal tendons, greater trochanter Joint Mobility Assessment Joint Mobility Assessment Hip flexion limited bilaterally, partially due to girth. Hip rotation (IR) reproduces pain only AROM. No groin pain or pain with joint scouring. Pain also with active ER during sidelying clam PT-OP-G Mobility & Gait Start: 12/20/23 13:02 Freq: Status: Active Protocol: Document 12/20/23 13:02 NM (Rec: 12/20/23 13:48 NM [id number]) OP Gait Assessment Gait Gait Assistance Required: Independent Distance (Feet) 150 Assistive Devices Assistive Device None Gait Deviations General Gait Pattern Antalgic,Flexed Trunk Factors Limiting Gait Function Factors Limiting Gait Function Decreased Strength,Limited Range of Motion,Pain Comments Gait Comments Stiffness PT-OP-J Posture/Palpation/Skin Start: 12/20/23 13:02 Freq: Status: Active Protocol: Document 12/20/23 13:02 NM (Rec: 12/20/23 13:48 NM [id number]) Posture Evaluation Position Standing Head/C-Spine Posture Forward Head Thorax Posture (L) Prominent L-Spine Posture Increased Lordosis Pelvis Posture Anteriorly Tilted Weight Distribution Balanced Hip Posture (L) Externally Rotated,(R) Externally Rotated Knee Posture (L) Genu Valgus,(R) Genu Valgus Comments Posture Comments L thorax more prominent posteriorly than R thorax. No palpable curve in spine Palpation Assessment Location R hip Palpation Details Tenderness behind greater trochanter, glute muscle belly and tendon. Medium palpable bursa or knot in gluteus medius muscle belly No tenderness in groin or anterior hip, IT band L hip Palpation Details Tenderness behind greater trochanter, glute muscle belly and tendon. Small palpable bursa or knot in gluteus medius muscle belly No tenderness in groin or anterior hip, IT band PT-OP-K Range of Motion Start: 12/20/23 13:02 Freq: Status: Active Protocol: Document 01/22/24 14:35 NM (Rec: 01/22/24 15:36 NM [id number]) Hip Goniometric Range of Motion Hip Right Flexion w/Knee Flexed 94 Abduction 25 Internal Rotation 28 External Rotation 30 Comments tight hip flex 01/22/24: 35 deg IR, 35 deg ER Left Flexion w/Knee Flexed 105 Abduction 25 Internal Rotation 40 External Rotation 28 Comments tight w/ ER, hip pointer IR at glute 01/22/24: 35 deg IR, 30 deg ER PT-OP-L Special Tests Start: 12/20/23 13:02 Freq: Status: Active Protocol: Document 12/20/23 13:02 NM (Rec: 12/20/23 13:48 NM [id number]) Special Tests Hip Special Tests John Paul's test Test Results - Sherri's Test Test Results + Log Roll Test Test Results - Straight Leg Raise Test Results - Comments no groin pain but discomfort reported at lateral hip Posterior Labral Test Test Results - Anterior Labral Test Test Results - scour Test Results - PT-OP-M Strength Start: 12/20/23 13:02 Freq: Status: Active Protocol: Document 01/22/24 14:35 NM (Rec: 01/22/24 15:36 NM [id number]) Hip Strength Hip Manual Muscle Testing Right Flexion (L2) 4 Good Extension (S1) 4- Good- Abduction 4- Good- Adduction 4 Good External Rotation 4 Good Internal Rotation 4 Good Comments abd and IR reproduce pain 01/22/24: 4/5 for all; no pain reproduced Left Flexion (L2) 4 Good Extension (S1) 4- Good- Abduction 4- Good- External Rotation 4 Good Internal Rotation 4 Good Comments IR reproduced pain, none with abduction but weaker 01/22/24: 4/5 for all; no pain reproduced PT-OP-Q Treatments Start: 12/20/23 13:02 Freq: Status: Active Protocol: Document 02/07/24 13:03 NM (Rec: 02/07/24 13:46 NM [id number]) Therapeutic Exercises Supine Exercises Bryce stretch Side bilateral Equipment Used table Reps/Minutes 60 ea Comments Feels good stretch more so on R side Core Supine Exercise Name BKFO Equipment Used with TrA Reps/Minutes 10 Comments no R glute pain with TrA figure 4 stretch Supine Exercise Name knee flexed Side bilateral Reps/Minutes 1x30 ea Comments feels good on both sides Sidelying Exercises reverse clams Side bilateral Equipment Used pillow between legs Reps/Minutes 2x10 1 hold Comments pain free on L; R- reports activation but denies pain clams Side bilateral Equipment Used pillow between legs to prevent add Reps/Minutes 2x10 with 1 hold Comments pain free on L; not pain on R but harder and feels more activation, tight Sitting Exercises latvian ball Sitting Exercise Name 1. pallof press, 2. QL stretch Side bilateral Equipment Used large green latvian ball 65 cm Reps/Minutes 1. 10 ea direction, 2. 6x10 hold ea side (denies pain) Comments feels in R glute for pallof; reports stretching feels good in back Manual Therapy Treatment Consent Patient gave verbal consent for manual Yes treatment Soft Tissue Mobilization B hips/glutes Body Location R glutes/piriformis, HS insertion Mobilization Type Oscillations,Rolling,Strumming Intensity/Depth Moderate Body Position Sidelying Comments Tenderness noted to R piriformis, glute medius/ julius especially middle and upper fibers. Improved tolerance and requests harder PT-OP-R Modalities Start: 12/20/23 13:02 Freq: Status: Active Protocol: Document 01/11/24 13:08 NBM (Rec: 01/11/24 13:50 NBM [id number]) Hot Pack/Cold Pack Treatment cold Location R glute/HS insertions and R hip using strap Patient Position Sidelying Patient Tolerance Good Comments calvo and all needs within reach. 10 minutes PT-OP-T Assessment and Plan Start: 12/20/23 13:02 Freq: Status: Active Protocol: Document 02/07/24 13:03 NM (Rec: 02/07/24 13:46 NM [id number]) Physical Therapy Assessment Goals Five Impairment HEP Short Term Goal (STG) Pt will report compliance with HEP at least 3x/wk in order to maximize progression with PT and demonstrate improved activity tolerance 01/04/24: Pt is doing HEP every night alternating iso hip abd and bridging as instructed. STG Duration 6 weeks MET Workforce Advisor Goal (LTG) Pt will report compliance with HEP at least 3x/wk in order to transition into maintenance program and promote healthier activity habits upon discharge from PT LTG Duration 12 weeks Four Impairment sleep Short Term Goal (STG) Pt will report that she is waking less than 2x/wk due to hip pain in order to show improved symptom management and QOL 01/03: R hip pain bothered her once this week and it was going to sleep but did not wake her up. 01/22/24: waking every other night instead of every night ( day after exercises) 02/05/24: states waking only 1- 2x/wk due to pain STG Duration 6 weeks MET Retirement Goal (LTG) Pt will report that she does not wake at night due to hip pain in order to show improved symptom management and QOL LTG Duration 12 weeks Three Impairment function, gait Short Term Goal (STG) Pt will report that she is able to ambulate at least 30 minutes without increase in baseline pain during errands or when walking her dog in order to demonstrate improved activity tolerance and QOL 01/22/24: 10 minutes ambulation with increased pain STG Duration 6 weeks NOT MET Workforce Advisor Goal (LTG) Pt will report no limitation due to hip pain in ambulation distance or surface in order to demonstrate improved activity tolerance when walking her dog or during errands LTG Duration 12 weeks Two Impairment strength Impairment difficulty with transition from sit > stand Short Term Goal (STG) Pt will be able to transfer from sitting to standing at least 10 times without UE assistance and no increase in baseline pain in order to demonstrate increased BLE strength, improved symptom management and ability to perform transfers 01/22/24: In previous sessions, pt unable to perform STS without increased gluteal pain ; only able to perform 5 reps STG Duration 6 weeks NOT MET Retirement Goal (LTG) Pt will complete 30 sec sit to stand at age-appropriate norms (15) without UE assistance or increase in baseline pain in order to demonstrate increased BLE strength, improved symptom management and ability to perform transfers LTG Duration 12 weeks One Impairment strength Short Term Goal (STG) Pt will improve B hip extension and abduction strength to at least 4/5 MMT in order to demonstrate increased hip strength for balance and gait 01/22/24: 4/5 MMT STG Duration 6 weeks MET Retirement Goal (LTG) Pt will improve B hip extension and abduction strength to at least 4+/5 MMT in order to demonstrate increased hip strength for balance and gait LTG Duration 12 weeks Assessment Summary Assessment Pt tolerated session well, states no pain at end of session even in standing/ ambulating. She continues to have tendernes along R glute fibers, especially upper and middle fibers, ending posterior to greater trochanter. Re-trialed sidelying clams/reverse clams, which pt able to perform with minimal discomfort after last session and during this session. Continued with core strengthening to improve postural control and indirect glute strength. Pt challenged by pallof press on latvian ball, requiring cues to maintain upright trunk. She has good feedback for QL and lumbar paraspinal stretching. Pt would benefit from skilled PT for progressive core/trunk and glute strengthening in order to improve symptom management and activity tolerance especially ambulation. Physical Therapy Plan Frequency and Duration Frequency of Treatment 2x/Week Duration of treatment (weeks) 12 Plan of Care Start Date 12/20/23 Plan of Care End Date 03/14/24 Therapeutic Interventions Therapeutic Interventions Balance Training,Gait Training ,Home Exercise Program,Joint Mobilizations,Manual Therapy, Neuromuscular Re-education, Orthotic/Prosthetic Management ,Patient/Caregiver Education, Self-Care/Home Management, Sensory Integration,Soft Tissue Mobilization,Taping, Therapeutic Activities, Therapeutic Exercises Modalities Cold Pack/Ice Massage,Electric Stimulation,Hot Packs, Traction- Mechanical, Ultrasound Next Visit Focus/Plan Next Note Type Treatment Note Next Visit Plan Assess tolerance to clam/ reverse clam as HEP. Trial STS from tall surface w/ level 1 band at thighs. Cont core on latvian ball, retry standing hip ramses w/ level 2 band standing hip abd isometric with band at ankles, then hip ER/IR (trial resistance), quadruped hip IR/ER; cont w/ STM/manual If poor tolerance, then continue with STM/manual; trial knee to chest with ball, single knee to chest, BKFO, core bracing, bridge w/o isometric Avoid hip ADD (cross body) Manual - STM to glutes, HS
--- NOTE | 2024-02-11 16:01 | PT-OP ANOTE ---
PT called pt at [phone] and left voicemail regarding pt's cancelling remaining appointments to follow up with pt
--- NOTE | 2024-02-22 12:00 | PT.OPDS ---
Current Diagnoses Pain in right hip (02/07/24) Pain in left hip (02/07/24) Other lack of coordination (02/07/24) Weakness (02/07/24) Visit Care Team Role Provider Type Casi Wilder MD Attending Provider Physician Family Provider Primary Care Provider Referring Provider Specialty: Family Practice Address: [address] [place] [address], [id number] Email: [email or web address] Visit Number Visit Number 10 Discharge Summary PT-OP-B Current Condition Start: 12/20/23 13:02 Freq: Status: Active Protocol: Document 12/20/23 13:02 NM (Rec: 12/20/23 13:48 NM [id number]) Current Condition History of Current Condition Onset Date several years Current Complaints pain, tightness History of Current Condition Pt presents with achy hips bilaterally. Pain has woken pt during the night, on the side that she sleeps on. Pt reports difficulty with walking. Hips feel super tight . She thinks that her hip problems began initially when she walking funny when she had ankle achilles tendonitis, has had procedures in 2016- 2016. Pt denies back pain. Denies numbnes and tingling. Recently had x-rays. Hips do not hurt at the same time, but equally bad. States that pain comes and go's, not happening as much. 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 She did not try exercises yesterday but has been trying to stand/walk. She is having less pain in L hip (not waking up for 1.5 weeks); tight only . Right side continues to tight and weak, more bothersome with gait. Has not woken up at night due to pain. PT-OP-E Functional Tests Start: 12/20/23 13:02 Freq: Status: Active Protocol: Document 12/20/23 13:02 NM (Rec: 12/20/23 15:44 NM [id number]) Functional Tests Other Forward Trunk Flexion Test Name of Test measured finger to floor Score 6 PT-OP-F Manual Assessment Start: 12/20/23 13:02 Freq: Status: Active Protocol: Document 12/20/23 13:02 NM (Rec: 12/20/23 15:44 NM [id number]) Manual Assessments Soft Tissue Assessment Soft Tissue Mobility Assessment Increased glute tightness bilaterally. Tenderness along gluteal tendons, greater trochanter Joint Mobility Assessment Joint Mobility Assessment Hip flexion limited bilaterally, partially due to girth. Hip rotation (IR) reproduces pain only AROM. No groin pain or pain with joint scouring. Pain also with active ER during sidelying clam PT-OP-G Mobility & Gait Start: 12/20/23 13:02 Freq: Status: Active Protocol: Document 12/20/23 13:02 NM (Rec: 12/20/23 13:48 NM [id number]) OP Gait Assessment Gait Gait Assistance Required: Independent Distance (Feet) 150 Assistive Devices Assistive Device None Gait Deviations General Gait Pattern Antalgic,Flexed Trunk Factors Limiting Gait Function Factors Limiting Gait Function Decreased Strength,Limited Range of Motion,Pain Comments Gait Comments Stiffness PT-OP-J Posture/Palpation/Skin Start: 12/20/23 13:02 Freq: Status: Active Protocol: Document 12/20/23 13:02 NM (Rec: 12/20/23 13:48 NM [id number]) Posture Evaluation Position Standing Head/C-Spine Posture Forward Head Thorax Posture (L) Prominent L-Spine Posture Increased Lordosis Pelvis Posture Anteriorly Tilted Weight Distribution Balanced Hip Posture (L) Externally Rotated,(R) Externally Rotated Knee Posture (L) Genu Valgus,(R) Genu Valgus Comments Posture Comments L thorax more prominent posteriorly than R thorax. No palpable curve in spine Palpation Assessment Location R hip Palpation Details Tenderness behind greater trochanter, glute muscle belly and tendon. Medium palpable bursa or knot in gluteus medius muscle belly No tenderness in groin or anterior hip, IT band L hip Palpation Details Tenderness behind greater trochanter, glute muscle belly and tendon. Small palpable bursa or knot in gluteus medius muscle belly No tenderness in groin or anterior hip, IT band PT-OP-K Range of Motion Start: 12/20/23 13:02 Freq: Status: Active Protocol: Document 01/22/24 14:35 NM (Rec: 01/22/24 15:36 NM [id number]) Hip Goniometric Range of Motion Hip Right Flexion w/Knee Flexed 94 Abduction 25 Internal Rotation 28 External Rotation 30 Comments tight hip flex 01/22/24: 35 deg IR, 35 deg ER Left Flexion w/Knee Flexed 105 Abduction 25 Internal Rotation 40 External Rotation 28 Comments tight w/ ER, hip pointer IR at glute 01/22/24: 35 deg IR, 30 deg ER PT-OP-L Special Tests Start: 12/20/23 13:02 Freq: Status: Active Protocol: Document 12/20/23 13:02 NM (Rec: 12/20/23 13:48 NM [id number]) Special Tests Hip Special Tests John Paul's test Test Results - Sherri's Test Test Results + Log Roll Test Test Results - Straight Leg Raise Test Results - Comments no groin pain but discomfort reported at lateral hip Posterior Labral Test Test Results - Anterior Labral Test Test Results - scour Test Results - PT-OP-M Strength Start: 12/20/23 13:02 Freq: Status: Active Protocol: Document 01/22/24 14:35 NM (Rec: 01/22/24 15:36 NM [id number]) Hip Strength Hip Manual Muscle Testing Right Flexion (L2) 4 Good Extension (S1) 4- Good- Abduction 4- Good- Adduction 4 Good External Rotation 4 Good Internal Rotation 4 Good Comments abd and IR reproduce pain 01/22/24: 4/5 for all; no pain reproduced Left Flexion (L2) 4 Good Extension (S1) 4- Good- Abduction 4- Good- External Rotation 4 Good Internal Rotation 4 Good Comments IR reproduced pain, none with abduction but weaker 01/22/24: 4/5 for all; no pain reproduced PT-OP-T Assessment and Plan Start: 12/20/23 13:02 Freq: Status: Active Protocol: Document 02/22/24 08:57 NM (Rec: 02/22/24 08:59 NM [id number]) Physical Therapy Assessment Goals Five Impairment HEP Short Term Goal (STG) Pt will report compliance with HEP at least 3x/wk in order to maximize progression with PT and demonstrate improved activity tolerance 01/04/24: Pt is doing HEP every night alternating iso hip abd and bridging as instructed. STG Duration 6 weeks MET [employer] Goal (LTG) Pt will report compliance with HEP at least 3x/wk in order to transition into maintenance program and promote healthier activity habits upon discharge from PT LTG Duration 12 weeks Four Impairment sleep Short Term Goal (STG) Pt will report that she is waking less than 2x/wk due to hip pain in order to show improved symptom management and QOL 01/03: R hip pain bothered her once this week and it was going to sleep but did not wake her up. 01/22/24: waking every other night instead of every night ( day after exercises) 02/05/24: states waking only 1- 2x/wk due to pain STG Duration 6 weeks [employer] Goal (LTG) Pt will report that she does not wake at night due to hip pain in order to show improved symptom management and QOL LTG Duration 12 weeks Three Impairment function, gait Short Term Goal (STG) Pt will report that she is able to ambulate at least 30 minutes without increase in baseline pain during errands or when walking her dog in order to demonstrate improved activity tolerance and QOL 01/22/24: 10 minutes ambulation with increased pain STG Duration 6 weeks NOT [employer] Goal (LTG) Pt will report no limitation due to hip pain in ambulation distance or surface in order to demonstrate improved activity tolerance when walking her dog or during errands LTG Duration 12 weeks Two Impairment strength Impairment difficulty with transition from sit > stand Short Term Goal (STG) Pt will be able to transfer from sitting to standing at least 10 times without UE assistance and no increase in baseline pain in order to demonstrate increased BLE strength, improved symptom management and ability to perform transfers 01/22/24: In previous sessions, pt unable to perform STS without increased gluteal pain ; only able to perform 5 reps STG Duration 6 weeks NOT [employer] Goal (LTG) Pt will complete 30 sec sit to stand at age-appropriate norms (15) without UE assistance or increase in baseline pain in order to demonstrate increased BLE strength, improved symptom management and ability to perform transfers LTG Duration 12 weeks One Impairment strength Short Term Goal (STG) Pt will improve B hip extension and abduction strength to at least 4/5 MMT in order to demonstrate increased hip strength for balance and gait 01/22/24: 4/5 MMT STG Duration 6 weeks MET Correction Goal (LTG) Pt will improve B hip extension and abduction strength to at least 4+/5 MMT in order to demonstrate increased hip strength for balance and gait LTG Duration 12 weeks Progress Towards Goals Progress Comments Goals not met Assessment Summary Assessment Pt was evaluated for B hip pain in December 2023. She attended x9 sessions following evaluation, with minimal change in symptoms. Pt did not make progress toward LTGs. PT extensively educated pt on activity modification and body mechanics/ergonomics; however , pt frequently came in with exacerbated symptoms following work or when participating community activities. Pt would likely benefit from additional imaging of hips to address symptom management if symptoms do not resolve. She called on 02/10 to cancel remaining appointments; pt has not followed up to PT call to check on pt status. Pt requested discharge from PT. Physical Therapy Plan Frequency and Duration Frequency of Treatment 2x/Week Duration of treatment (weeks) 12 Plan of Care Start Date 12/20/23 Plan of Care End Date 03/14/24 Therapeutic Interventions Therapeutic Interventions Balance Training,Gait Training ,Home Exercise Program,Joint Mobilizations,Manual Therapy, Neuromuscular Re-education, Orthotic/Prosthetic Management ,Patient/Caregiver Education, Self-Care/Home Management, Sensory Integration,Soft Tissue Mobilization,Taping, Therapeutic Activities, Therapeutic Exercises Modalities Cold Pack/Ice Massage,Electric Stimulation,Hot Packs, Traction- Mechanical, Ultrasound Discharge Physical Therapy Discharge Reasons Patient Request Discharge Comments Pt called on 02/10 to cancel remaining appointments; pt did not provide a reason. Pt will be discharged per request and will need new referral to return to PT. Next Visit Focus/Plan Next Visit Plan discharge
== END 2024-03-25 14:52 | disposition home or self-care (01) ==
LOC: PHYS 13:00
PROVIDERS: Family Provider Family Medicine; PCP Family Medicine; Referring Provider Family Medicine; Visit Provider Family Medicine
DX: M25.551 Pain in right hip (principal); M25.552 Pain in left hip; R53.1 Weakness; R27.8 Other lack of coordination
CPT/HCPCS: 97110; 97140; 97162; 97530; 97535

== ENCOUNTER → 2024-02-22 07:43 | Outpatient (CLI) | payer MEDICARE, SELFPAY ==
--- NOTE | 2024-02-22 | DI.MG.S_ITS ---
BILATERAL DIGITAL SCREENING MAMMOGRAM 3D/2D WITH CAD: 02/22/2024 CLINICAL: Routine screening. Comparison is made to exams dated: 02/12/2023 mammogram, 02/09/2022 mammogram, and 07/29/2020 mammogram - [facility]. There are scattered areas of fibroglandular density in both breasts (category b / 25%-50% glandular tissue). Current study was also evaluated with a Computer Aided Detection (CAD) system. No significant masses, calcifications, or other findings are seen in either breast. There has been no significant interval change. IMPRESSION: NEGATIVE There is no mammographic evidence of malignancy. A 1 year screening mammogram is recommended. Based on the Tyrer Cuzick model (a risk assessment model) the patient's lifetime risk is 5.1% and her 10 year risk is 2.4%. According to the ACR, ACS, and NCCN guidelines, an annual breast MRI exam along with mammogram is recommended if the patient's lifetime risk is 20% or greater. This exam was interpreted at Station ID: [id number]. NOTE: For mammograms, a report in lay terms will be sent to the patient. Approximately 15% of breast malignancies will not be visualized mammographically. In the management of a palpable breast mass, a negative mammogram must not discourage biopsy of a clinically suspicious lesion. Electronically Signed By: Kelby king/joana:02/22/2024 12:45:57 copy to: JOSE TENA copy to: Stephanie Wade, ph: [phone], fax: [phone] letter sent: Normal Exam ACR BI-RADS Category 1: Negative [id number]
== END ==
PROVIDERS: Family Provider Family Medicine; PCP Family Medicine; Referring Provider Family Medicine; Visit Provider Family Medicine
DX: Z12.31 Encounter for screening mammogram for malignant neoplasm of breast (principal); R92.323 Mammographic fibroglandular density, bilateral breasts
CPT/HCPCS: 77063; 77067

== ENCOUNTER → 2024-10-07 09:59 | Outpatient (CLI) | payer MEDICARE, SELFPAY ==
--- NOTE | 2024-10-07 10:01 | DI.RAD.S_ITS ---
PROCEDURE: XR CERVICAL SPINE 2V OR 3V INDICATIONS: radiculopathy TECHNIQUE: 3 view(s) of the cervical spine were acquired. COMPARISON: None. FINDINGS: Bones: No fractures or dislocations to the T1 level. Moderate to severe C5-C6 and C6-C7 disc height loss noted with adjacent endplate sclerosis and anterior osteophytosis. Minimal grade 1 retrolisthesis of C5 on C6 measures 0.3 cm. The lateral masses of C1 appear intact on the odontoid view. No suspicious bony lesions. Soft tissues: No prevertebral soft tissue swelling. IMPRESSION: No displaced fracture or traumatic subluxation. Degenerative changes including grade 1 retrolisthesis of C5 and C6 noted. Dictated by: Ezio Bragg M.D. on 10/08/2024 at 3:34 Approved by: Ezio Bragg M.D. on 10/08/2024 at 3:36
== END ==
PROVIDERS: Family Provider Family Medicine; PCP Family Medicine; Referring Provider Family Medicine; Visit Provider Family Medicine
DX: M47.22 Other spondylosis with radiculopathy, cervical region (principal); M43.12 Spondylolisthesis, cervical region; M54.10 Radiculopathy, site unspecified
CPT/HCPCS: 72040

== ENCOUNTER → 2024-11-22 07:17 | Outpatient (CLI) | payer MEDICARE, SELFPAY ==
--- NOTE | 2024-11-22 07:19 | DI.MRI.S_ITS ---
PROCEDURE: MR CERVICAL SPINE WO CON INDICATIONS: radiculopathy, neck pain TECHNIQUE: Noncontrast sagittal T1 spin echo and T2 fast spin echo, sagittal STIR, foraminal oblique sagittal T2 fast spin echo, and axial gradient echo or T2 fast spin echo through the cervical spine. COMPARISON: None. FINDINGS: Alignment and Curvature: Straightening of the normal cervical lordosis Bone Marrow: Marrow demonstrates normal overall signal. Spinal Cord: Visualized spinal cord has normal size and signal. No cerebellar tonsillar herniation. Paraspinous Soft Tissues: No paravertebral masses. Prevertebral soft tissues are normal in thickness. C2-C3: Normal appearance. C3-C4: Small posterior disc osteophyte with hypertrophic arthropathy. Moderate left foraminal stenosis. No right or central stenosis. C4-C5: No central or foraminal stenosis C5-C6: Posterior disc osteophyte complex and hypertrophic arthropathy. Mild central stenosis with flattening of the ventral cord. Severe left and moderate right foraminal stenosis C6-C7: Normal appearance. C7-T1: Normal appearance. IMPRESSION: Multilevel degenerative disc disease and arthropathy results in varying degrees of central and foraminal stenosis including severe left foraminal stenosis C5-6 Approved by: Grayson Garcia M.D. on 11/24/2024 at 16:48
== END ==
PROVIDERS: Family Provider Family Medicine; PCP Family Medicine; Referring Provider Family Medicine; Visit Provider Family Medicine
DX: M47.812 Spondylosis without myelopathy or radiculopathy, cervical region (principal); M48.02 Spinal stenosis, cervical region; M50.31 Other cervical disc degeneration, high cervical region; M54.10 Radiculopathy, site unspecified; M25.519 Pain in unspecified shoulder
CPT/HCPCS: 72141

== ENCOUNTER → 2025-03-24 07:16 | Outpatient (CLI) | payer MEDICARE, SELFPAY ==
--- NOTE | 2025-03-24 07:17 | DI.MRI.S_ITS ---
PROCEDURE: MR KNEE LT WO CON INDICATIONS: left knee pain TECHNIQUE: Noncontrast sagittal PD fast spin echo and T2 fast spin echo with fat saturation, sagittal 3-D FLASH with fat saturation; coronal T1 spin echo and PD fast spin echo with fat saturation, and axial PD fast spin echo with fat saturation through the knee. COMPARISON: None. FINDINGS: Image quality: Excellent. Anterior cruciate ligament: Intact. Posterior cruciate ligament: Intact. Medial collateral ligament: Intact. Lateral collateral ligament: Intact. Medial meniscus: Intact. Lateral meniscus: Intact. Medial and lateral tendons: The semimembranosus tendon insertions appear intact. Visualized portions of the pes anserinus tendons appear normal. The popliteus tendon is intact. Iliotibial band appears normal. Anterior structures: The quadriceps and patellar tendons appear intact. No patellar subluxation. No femoral trochlear dysplasia or ventral trochlear prominence. No edema in the infrapatellar fat pad. Bones: No bone marrow contusions or fractures. Medial femorotibial cartilage: Mild partial-thickness cartilage thinning and surface irregularity with small marginal osteophytes.. Lateral femorotibial cartilage: Mild partial-thickness cartilage thinning and marginal osteophytes. Patellofemoral cartilage: Full-thickness cartilage loss at the median ridge of the patella on the surrounding portions of the medial and lateral patellar facets as well as the trochlear groove with subchondral cystic changes and marginal osteophytes. Soft tissues: Moderate joint effusion. Small medial popliteal cyst. The visualized musculature is normal in bulk. IMPRESSION: 1. Full-thickness cartilage loss in the patellofemoral compartment with subchondral cystic changes. Grade 2 chondromalacia and cartilage thinning in the medial and lateral femorotibial compartments. Small tricompartmental marginal osteophytes. 2. No acute trabecular bone injury. Cruciate and collateral ligaments are intact. No meniscal tear. 3. Moderate joint effusion. Small medial popliteal cyst. Approved by: Kelby Campuzano M.D. on 03/24/2025 at 9:47
== END ==
PROVIDERS: Family Provider Family Medicine; PCP Family Medicine; Referring Provider Family Medicine; Visit Provider Orthopaedic Surgery Adult Reconstructive Orthopaedic Surgery
DX: M94.262 Chondromalacia, left knee (principal); M71.22 Synovial cyst of popliteal space [Baker], left knee; M25.462 Effusion, left knee; M25.562 Pain in left knee
CPT/HCPCS: 73721